=== PATIENT | male | born 1955 | race Caucasian/White ===

== ENCOUNTER → 2023-08-22 15:27 | Outpatient (REF) | payer MEDICARE, OTHER, SELFPAY ==
[2023-08-22 16:12] LABS: Urine Protein < 5 mg/dl
== END ==
LOC: OIDL 15:27
PROVIDERS: ATTENDING PHYSICIAN Internal Medicine Hematology & Oncology
DX: C34.12 Malignant neoplasm of upper lobe, left bronchus or lung (principal)
CPT/HCPCS: 82570; 84156

== ENCOUNTER → 2023-09-12 14:45 | Outpatient (REF) | payer MEDICARE, OTHER, SELFPAY ==
[2023-09-12 16:03] LABS: Urine Protein < 5 mg/dl
== END ==
LOC: OIDL 14:45
PROVIDERS: ATTENDING PHYSICIAN Internal Medicine Hematology & Oncology
DX: C34.12 Malignant neoplasm of upper lobe, left bronchus or lung (principal); D50.9 Iron deficiency anemia, unspecified; R53.82 Chronic fatigue, unspecified
CPT/HCPCS: 82570; 84156

== ENCOUNTER → 2023-10-10 13:30 | Outpatient (REF) | payer MEDICARE, OTHER, SELFPAY | LOC: HWRAD 13:30 | PROVIDERS: ATTENDING PHYSICIAN Nurse Practitioner Adult Health; FAMILY PHYSICIAN Family Medicine; REFERRING PHYSICIAN Internal Medicine Hematology & Oncology | DX: C34.12 Malignant neoplasm of upper lobe, left bronchus or lung (principal); D50.9 Iron deficiency anemia, unspecified; R53.82 Chronic fatigue, unspecified | CPT/HCPCS: 70470; 71260; 74177; Q9967 ==

== ENCOUNTER → 2023-11-21 15:34 | Outpatient (REF) | payer MEDICARE, OTHER, SELFPAY ==
[2023-11-21 15:31] LABS: Urine Protein < 5 mg/dl
== END ==
LOC: OIDL 15:34
PROVIDERS: ATTENDING PHYSICIAN Internal Medicine Hematology & Oncology
DX: C34.12 Malignant neoplasm of upper lobe, left bronchus or lung (principal)
CPT/HCPCS: 82570; 84156

== ENCOUNTER → 2023-12-12 15:52 | Outpatient (REF) | payer MEDICARE, OTHER, SELFPAY ==
[2023-12-12 17:11] LABS: Urine Protein < 5 mg/dl
== END ==
LOC: OIDL 15:52
PROVIDERS: ATTENDING PHYSICIAN Internal Medicine Hematology & Oncology
DX: C34.12 Malignant neoplasm of upper lobe, left bronchus or lung (principal)
CPT/HCPCS: 82570; 84156

== ENCOUNTER → 2023-12-19 16:12 | Outpatient (REF) | payer MEDICARE, OTHER, SELFPAY ==
[2023-12-19 14:51] LABS: % Basophils 0.4 % (0-2); % Eosinophils 1.7 % (0-6); % Lymphocytes 16.2 % (20.5-51.1); % Monocytes 12.2 % (1.7-9.3); % Neutrophils 69.5 % (42.2-75.2); Absolute Eosinophils 0.1 10^3/uL (0-0.7); Absolute Lymphocytes 0.9 10^3/uL (1.2-3.4); Absolute Monocytes 0.7 10^3/uL (0.1-0.6); Absolute Neutrophils 3.7 10^3/uL (1.4-6.5); Hematocrit 42.9 % (39.0-52.0); Hemoglobin 14.3 g/dL (13.0-18.0); Mean Corp Hgb Conc. 33.3 g/dL (33.0-37.0); Mean Corpuscular Hgb 34.3 pg (27.0-31.0); Mean Corpuscular Volume 102.9 fL (80.0-94.0); Mean Platelet Volume 9.3 fL (7.4-10.4); Platelet Count 82 10^3/uL (130-400); Red Blood Cell Count 4.17 10^6/uL (4.70-6.10); Red Cell Dist. Width 14.5 % (11.5-14.5); White Blood Cell Count 5.3 10^3/uL (4.8-10.8)
== END ==
LOC: OIDL 16:12
PROVIDERS: ATTENDING PHYSICIAN Internal Medicine Hematology & Oncology
DX: C34.12 Malignant neoplasm of upper lobe, left bronchus or lung (principal)
CPT/HCPCS: 85025

== ENCOUNTER 2023-12-26 23:17 | Inpatient (IN) | payer MEDICARE, OTHER, SELFPAY ==
[2023-12-26] VITALS (13 sets, daily range): BP systolic 100–148; BP diastolic 70–102; BMI 18.7
[2023-12-26 20:49] LABS: % Basophils 0.4 % (0-2); % Eosinophils 1.5 % (0-6); % Immature Granulocytes 0.2 % (0-0.5); % Lymphocytes 21.5 % (20.5-51.1); % Monocytes 12.4 % (1.7-9.3); Absolute Eosinophils 0.1 10^3/uL (0-0.7); Absolute Lymphocytes 1.1 10^3/uL (1.2-3.4); Absolute Monocytes 0.7 10^3/uL (0.1-0.6); Absolute Neutrophils 3.4 10^3/uL (1.4-6.5); Hematocrit 38.5 % (39.0-52.0); Hemoglobin 13.4 g/dL (13.0-18.0); Mean Corp Hgb Conc. 34.8 g/dL (33.0-37.0); Mean Corpuscular Volume 97.7 fL (80.0-94.0); Mean Platelet Volume 9.3 fL (7.4-10.4); Nucleated Red Blood Cells % 0 % (-); Platelet Count 96 10^3/uL (130-400); Red Blood Cell Count 3.94 10^6/uL (4.70-6.10); Red Cell Dist. Width 14.8 % (11.5-14.5); White Blood Cell Count 5.3 10^3/uL (4.8-10.8)
[2023-12-26] MEDS: CARDIZEM 5 MG IV (21:00)
[2023-12-26] MEDS: CARDIZEM 125 IV (21:01)
--- NOTE | 2023-12-26 21:03 | ED.GENMED ---
History of Present Illness
General
Chief Complaint: Breathing Problem
Source: patient
Exam Limitations: none
Time Seen by Provider: 12/26/23 20:32
History of Present Illness
History of Present Illness:
This is a 68 year old male that comes in with c/o his heart feeling tight. States that when he walks around it has been hard for him to breath. State that his chest feels tight. Patient states that he is not on cheko blood thinners. Denies any fever,
chills, abd pain, nause, vomiting, diarrhea, headache, dizziness, urinary burning.
Past History
Past History
ED Past Medical History: Arrthythmia (Atrial fib), Cancer (Lung and brain, Non small cell Lung CA with mets), HTN, Hypercholesterolemia and Other (PNA, Anemia, Legionella); Negative Asthma or NIDDM
ED Past Surgical History: None and Orthopedic (Back surgery for CA mets)
Social History
Tobacco: Former smoker
Alcohol: Daily (Beer 4-5)
Personal:
Living: with family
Review of Systems
Review of Systems
All Other Systems: ROS reviewed and negative except as documented in HPI and ROS
Constitutional: Reports no symptoms; Denies fever or chills
EENT: Reports no symptoms
Respiratory: Reports trouble breathing; Denies cough
Cardiac: Reports chest pain (Tighthness)
ABD/GI: Reports no symptoms; Denies abdominal pain, nausea, vomiting or diarrhea
: Reports no symptoms; Denies dysuria, frequency or urgency
Musculoskeletal: Reports no symptoms
Skin: Reports no symptoms
Neurological: Reports no symptoms; Denies dizzy or headache
Psychiatric: Reports no symptoms
Phy Exam
General Physical Exam
General Presentation: no apparent distress
General age: appears stated age
General Skin: warm and dry
General Habitus: elderly
General Mental: alert
General Hydration: appears well hydrated
ENT Exam
ENT Exam: TM's normal, pharynx normal and neck supple
Eye Exam
Eye Exam: EOMI
Cardiovascular Exam
Cardiovascular Exam: normal peripheral pulses and irregularly irregular
Pulmonary Exam
Pulmonary Exam: lungs clear, no respiratory distress, no rales, chest non tender, no crackles, no rhonchi, no wheezing and no cough
Gastrointestinal Exam
Gastrointestinal Exam: normal bowel sounds, non tender, soft, no organomegaly, no pulsatile mass and non distended
Musculoskeletal Exam
Musculoskeletal Exam: full ROM and edema (Lower leg +2 pitting to knee. Left hand and arm swelling)
Skin Exam
Skin Exam: warm/dry, no rash, no petechia and pallor
Psychiatric Exam
Psychiatric Exam: normal mood/affect
Scores
Heart Failure Risk
Heart Failure Risk Score: Not Applicable
Course
Orders/Labs/Results
Orders:
Orders
12/26/23 20:24
Electrocardiogram (*1) Urgent
Reason for Study: Shortness of Breath
EKG- Treatment ONCE
12/26/23 20:30
CR Chest - 2 Views Urgent
Comment:
Reason For Exam: shortness
12/26/23 20:42
Complete Blood Count/With Diff Urgent
Comprehensive Metabolic Panel Urgent
Troponin I Urgent
12/26/23 20:46
Diltiazem 125 mg/125 ml Nss [Cardizem] 125 mg in 125 ml IV NOW
Initial dose in mg/hr, then titrate:: 5
Titrate to keep:: Heart rate 80-100 bpm
Titrate by mg/hr:: 5 mg/hr
Frequency of titrations (minutes):: 15
Maximum dose in mg/hr:: 15
Diltiazem HCl [Cardizem] 5 mg IV NOW STA
12/26/23 21:11
CT Chest Pe Study Urgent
Comment: History of Lung CA, Now in atrial fib
Reason For Exam: SOB,
12/26/23 23:00
Flush (0.9% Sodium Chloride) [Flush (Nss)] See Dose Instructions IV PER PROTOCOL
12/26/23 23:06
Admit/Transfer Patient As Directed
Co-Sign Provider:
Level of Care: Inpatient admission
Assign to:: Telemetry
Physician / Group: fartun
Diagnosis: afib rvr
Reason for Telemetry: Arrhythmia
Date to Stop Telemetry: 12/29/23
Time to Stop Telemetry: 11:00
Reason for Hospitalization: afib rvr
Expected length of stay greater than two midnights?: Yes
ELOS- Estimated Length of Stay in days: 2
I certify the patient meets the requirements for IP care: Yes
12/26/23 23:07
Code Status As Directed
Resuscitation Status: Full Code
12/29/23 11:00
DC Protocol for Telemetry ONCE
Abnormal Lab Results
12/26/23
20:42
RBC 3.94 L 10^6/uL
(4.70-6.10)
Hct 38.5 L %
(39.0-52.0)
MCV 97.7 H fL
(80.0-94.0)
MCH 34.0 H pg
(27.0-31.0)
RDW 14.8 H %
(11.5-14.5)
Plt Count 96 L 10^3/uL
(130-400)
Absolute Lymphs (auto) 1.1 L 10^3/uL
(1.2-3.4)
Absolute Monos (auto) 0.7 H 10^3/uL
(0.1-0.6)
Monocytes % 12.4 H %
(1.7-9.3)
Creatinine 0.6 L mg/dL
(0.7-1.3)
Glucose 107 H mg/dl
(70-99)
Total Protein 6.1 L g/dl
(6.3-8.2)
Albumin 3.0 L g/dl
(3.5-5.0)
12/26/23 20:42
12/26/23 20:42
Anemia, thrombocytopenia, Glucose nonfasting. Albumin slightly low. Troponin <0.012
Vital Signs
Initial and Last Documented VS:
Initial Vital Signs
BP
136/102
12/26/23 20:21
Last Documented Vital Signs
Temp Pulse Resp BP Pulse Ox
98.9 F 82 20 102/70 96
12/26/23 20:25 12/26/23 23:45 12/26/23 23:45 12/26/23 23:30 12/26/23 23:45
MDM/Problems Addressed
Differential Diagnosis Includes:
Atrial fib,
MDM/Problems Addressed:
This is a 68 year old male that comes in with c/o SOB and chest tightness. States that when he walks around he is SOB. State that his chest tightness started yesterday and it just feels like someone is pushing back when he tried to take a deep
breath.
Will get Labs. Start on Cardizem and CT chest to r/o PE.
Chronic conditions affecting care:
History of Atrial fib
Acute Exacerbation and/or Progression of Chronic Illness:
History of atrial fib
*Radiology
Radiology exam reviewed: radiology read reviewed (Chest-NO acute cardiopulmonary process CT chest-NO evidence of pulmonary embolism. Small left and moderate right pleural effusions, new from prior. Upper abdominal ascites. )
*Pulse Oximetry
Patient hypoxic: no
*EKG
Interpreted by ED Provider?: Yes
Heart Rate: 150
Rate: tachycardiac
Rhythm: a-fib
[place]: normal axis
QRS Pattern: normal QRS
Ischemia: no ischemia
*Rail Car Repairer Interpretation
Rate: tachycardiac
Heart Rate: 147
Rhythm: a-fib
*Critical Care Note
Total Time (30-74mins, 75-104mins- exclusive of procedures): Not Applicable
ED Attending Note
-
Portions of this chart may have been created with voice recognition software.� Occasional wrong word or��sound alike� substitutions may have occurred due to the inherent limitations of voice recognition software.
Discharge Plan
Departure
Patient Disposition: Admit
Date of Disposition: 12/26/23
Time of Disposition: 22:43
Admit to: Telemetry
Presentation/result/management discussed w/ accepting MD/DO: Hospitalist
Patient with high blood pressure during this ER visit?: No
Condition: Good
Covid-19: Not Applicable
Discharge Problem:
Uncontrolled atrial fibrillation
Interventions
Interventions:
*Risk Screen - Suicide Last Done: 12/26/23 20:25
*General Assessment Last Done: 12/26/23 20:25
*Neglect/Abuse Screening Last Done: 12/26/23 20:25
ED- Cardiac Assessment Last Done: 12/26/23 20:34
ED- Pulmonary Assessment Last Done: 12/26/23 20:34
[2023-12-26 21:07] LABS: ALT (SGPT) 48 U/L (0-50); AST (SGOT) 56 U/L (17-59); Alkaline Phosphatase 97 U/L (38-126); Blood Urea Nitrogen 11 mg/dl (9-20); Calcium 8.9 mg/dl (8.4-10.2); Carbon Dioxide 29 mmol/L (22-30); Chloride 102 mmol/L (98-107); Estimated Creatinine Clearance 100 ml/min; Glucose 107 mg/dl (70-99); Potassium 3.9 mmol/L (3.5-5.1); Sodium 135 mmol/L (135-145); Total Bilirubin 1.3 mg/dl (0.2-1.3); Total Protein 6.1 g/dl (6.3-8.2); eGFR > 60.00
[2023-12-26 21:12] LABS: Troponin I < 0.012 ng/ml
--- NOTE | 2023-12-26 23:12 | HPS.HSE ---
Family Physician
-
Family Physician: Shashank Kulkarni
Chief Complaint
-
chest pressure, shortness of breath
History of Present Illness
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
post surgery, back wound infection with staph last year, atrial fibrillation not on anticoagulation, hypertension, hypercholesteremia, hypothyroidism, presenting with chest tightness, difficulty breathing since yesterday. He denies any fevers,
chills, abdominal pain, nausea vomiting, diarrhea, headache, dizziness or urinary symptoms.
No cough. No fevers or chills. No nausea vomiting or diarrhea. No urinary symptoms.
Patient has recently been complaining of some difficulty swallowing.
He is a former smoker and alcohol user. No longer uses.
Medical History
Past Medical History
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
post surgery, back wound infection with staph last year, atrial fibrillation not on antico)
Past Surgical History: Reports None
Social History
Tobacco: Former Smoker
Alcohol: Former
Drug: None
Family History
Family History: Not pertinent
Allergies / Home Medications
Allergies reflects when Allergies were last updated in [employer].
Home Medications with original date entered in [employer]
Allergy/Medication List:
Allergies
Allergy/AdvReac Type Severity Reaction Status Date / Time
cefazolin [From Anc] Allergy Rash Verified 12/26/23 20:21
vancomycin Allergy Rash Verified 12/26/23 20:21
Home Medications
atorvastatin 40 mg tablet 40 mg PO QPM 12/26/23
levetiracetam 500 mg tablet 500 mg PO BID 12/26/23
levothyroxine 50 mcg tablet 50 mcg PO DAILY 12/26/23
morphine 15 mg tablet,extended release 15 mg PO Q12H 12/26/23
polyethylene glycol 3350 17 gram oral powder packet 8.5 grams PO DAILY 12/26/23
therapeutic multivitamin 1 tab PO DAILY 12/26/23
trazodone 100 mg tablet 100 mg PO HS 12/26/23
Review of Systems
-
History Source: Patient
A 12 point ROS was completed and negative except as noted: Yes
Constitutional: Reports No Symptoms
EENT: Reports No Symptoms
Respiratory: Reports See HPI
Cardiac: Reports See HPI
Abdomen/GI: Reports No Symptoms
: Reports No Symptoms
Musculoskeletal: Reports No Symptoms
Skin: Reports No Symptoms
Neurological: Reports No Symptoms
Endocrine: Reports No Symptoms
Hematologic/Lymphatic: Reports No Symptoms
Psych: Reports No Symptoms
Physical Exam
Vital Signs
Vital Signs
Temp Pulse Resp BP Pulse Ox
98.9 F 131 16 122/86 96
12/26/23 20:25 12/26/23 21:15 12/26/23 21:15 12/26/23 21:15 12/26/23 21:15
Physical Exam
General: Well Developed, Well Nourished and No Apparent Distress
HEENT: NormoCephalic, Moist mucous membranes and Atraumatic
Respiratory: Clear
Cardiac: S1/S2 and Regular Rhythm; No Murmur or Rub
GI: Soft, Non Tender, Non Distended and Normal Bowel Sounds; No Organomegaly
Rectal: Deferred by Provider
Musculoskeletal: No Clubbing, No Cyanosis and No Edema
Skin: No Rash
Neuro: Nonfocal/grossly intact
Laboratory Results
-
12/26/23 20:42
12/26/23 20:42
Laboratory Results
Total Bilirubin 1.3 mg/dl (0.2-1.3) 06/25/24 20:42
AST 56 U/L (17-59) 12/26/23 20:42
ALT 48 U/L (0-50) 12/26/23 20:42
Alkaline Phosphatase 97 U/L (38-126) 12/26/23 20:42
Troponin I < 0.012 ng/ml 12/26/23 20:42
Data Reviewed
-
Lab Data: Labs Reviewed by me
Old Records: Reviewed
Impression/Plan
-
IMPRESSION:
PLAN:
# Atrial fibrillation with RVR
-Cardizem drip started
-Cardiology consulted
-Not on anticoagulation, not a good candidate due to thrombocytopenia, history of brain tumor
# Swallowing difficulty possibly related to prior radiation
-Check speech and swallow
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
-currently on immunotherapy with Cyramza
-On prophylactic Keppra due to history of brain metastases mets
Spine metastases status post surgery
-Continue morphine, trazodone
History of staph infection of back wound last year
Chronic thrombocytopenia
-Platelets stable
Essential hypertension
Hypercholesteremia
-Continue statin
Hypothyroidism
-Continue levothyroxine
Full code
DVT prophylaxis�SCDs
Regular diet
[2023-12-27] VITALS (7 sets, daily range): BP systolic 91–113; BP diastolic 68–86; BMI 18.2
--- NOTE | 2023-12-27 01:12 | PTCARENOTE ---
Pt rec'd as new admit awake,alert some confusion noted. spouse helped with adm hx. IV Cardizem gtt d/c'd shortly after arrival per house PROFESSOR OF GENETICS order. Afib 70-90. SQ port flushed,DDI. Pt missed PM medications, awaiting clearance from pharmacy to give
doses. bed alarm placed as spouse states pt is fall risk. multiple drsg on spine and buttocks. Consult for wound care placed.
[2023-12-27] MEDS: MS CONTIN (EXTENDED RELEASE) 15 MG PO ×3 (01:20→23:05)
[2023-12-27] MEDS: KEPPRA 500 MG PO ×3 (01:20→19:37)
[2023-12-27] MEDS: DESYREL 100 MG PO ×2 (01:20→23:05)
[2023-12-27 06:20] LABS: % Basophils 0.5 % (0-2); % Lymphocytes 23.5 % (20.5-51.1); % Monocytes 17.1 % (1.7-9.3); % Neutrophils 57.9 % (42.2-75.2); Absolute Lymphocytes 0.9 10^3/uL (1.2-3.4); Absolute Monocytes 0.7 10^3/uL (0.1-0.6); Absolute Neutrophils 2.3 10^3/uL (1.4-6.5); Hematocrit 33.8 % (39.0-52.0); Hemoglobin 11.6 g/dL (13.0-18.0); Mean Corp Hgb Conc. 34.3 g/dL (33.0-37.0); Mean Corpuscular Hgb 33.7 pg (27.0-31.0); Mean Corpuscular Volume 98.3 fL (80.0-94.0); Mean Platelet Volume 9.4 fL (7.4-10.4); Nucleated Red Blood Cells % 0 % (-); Platelet Count 61 10^3/uL (130-400); Red Blood Cell Count 3.44 10^6/uL (4.70-6.10); Red Cell Dist. Width 14.7 % (11.5-14.5); White Blood Cell Count 3.9 10^3/uL (4.8-10.8)
--- NOTE | 2023-12-27 06:37 | W.PN.HOSP.TC ---
Today's Communication/Plan
-
PT/OT
Speech evaluation
GOC discussion?
Assessment / Plan
Assessment / Plan
Physical Exam
General: chronically ill looking. No Apparent Distress
HEENT: Normocephalic, Moist mucous membranes and Atraumatic
Respiratory: limited, no wheezes.
Cardiac: S1/S2
GI: Soft, Non Tender, Non Distended
Rectal: No rectal bleeding
Musculoskeletal: No Clubbing, No Cyanosis and No Edema
Skin: No Rash
Neuro: Awake, forgetful
Psych: calm, confused.
# Hyponatremia
mild
# paroxysmal Atrial fibrillation with RVR
currently rate is controlled
Negative troponin
-Not on anticoagulation, not a good candidate due to thrombocytopenia, Brain metastatic.
# Cognitive impairment
per family, not new issue
# Swallowing difficulty possibly related to prior radiation
-Check speech and swallow
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
-currently on immunotherapy with Cyramza
-On prophylactic Keppra due to history of brain metastases mets
# cancer pain with opioid dependency
Spine metastases status post surgery
-Continue morphine, trazodone
# History of staph infection of back wound last year
#Chronic thrombocytopenia
Hx of pancytopenia due to chemotherapy
-Platelets stable
#Essential hypertension
Low BP without BP medications
Hypercholesteremia
-Continue statin
Hypothyroidism
-Continue levothyroxine
Total time spent to see the patient on the floor, examine the patient, review data and lab results, discuss treatment plan with patient, nursing staff around 55 minutes
Anticipated Discharge: 24 - 48 hours
Subjective/Interval History
-
Date of Service: December 27, 2023
He feels a little bit of sob/chest pain but later said no to chets pain
He seems sleepy
Objective Data
-
Labs:
Laboratory Results
12/26/23 12/27/23
20:42 06:05
WBC 5.3 3.9 L
Hgb 13.4 11.6 L
Hct 38.5 L 33.8 L
Plt Count 96 L 61 L D
Sodium 135 Pending
Potassium 3.9 Pending
Chloride 102 Pending
Carbon Dioxide 29 Pending
BUN 11 Pending
Creatinine 0.6 L Pending
Glucose 107 H Pending
Calcium 8.9 Pending
Total Bilirubin 1.3 Pending
AST 56 Pending
ALT 48 Pending
Alkaline Phosphatase 97 Pending
Vital Signs:
Vital Signs
Temp Pulse Resp BP Pulse Ox
98.1 F 69 17 105/68 96
12/27/23 05:52 12/27/23 06:00 12/27/23 05:52 12/27/23 05:51 12/27/23 05:52
I&O
12/25/23 12/26/23 12/27/23
06:59 06:59 06:59
Intake Total 50 / 50
Balance 50 / 50
[2023-12-27 07:02] LABS: ALT (SGPT) 56 U/L (0-50); AST (SGOT) 66 U/L (17-59); Albumin 2.4 g/dl (3.5-5.0); Alkaline Phosphatase 83 U/L (38-126); Blood Urea Nitrogen 10 mg/dl (9-20); Calcium 8.7 mg/dl (8.4-10.2); Carbon Dioxide 29 mmol/L (22-30); Chloride 103 mmol/L (98-107); Estimated Creatinine Clearance 97 ml/min; Glucose 93 mg/dl (70-99); Potassium 3.9 mmol/L (3.5-5.1); Sodium 134 mmol/L (135-145); Total Bilirubin 1.2 mg/dl (0.2-1.3); Total Protein 5.1 g/dl (6.3-8.2); eGFR > 60.00
--- NOTE | 2023-12-27 09:40 | PTOTSP ---
Speech Language Pathology
Pt seen for clinical bedside swallow evaluation. Known to FLASK CLEANER department at from VSE completed 01/02/09 with findings of some vallecular retention but no penetration/aspiration. Recommendations for regular solids/thin liquids, and FLASK CLEANER signed off.
This date, P.O. trials of puree and thin liquids via cup and straw provided. Consistent audible swallow with questionable reduced distention of pharyngoesophageal segment (PES). Consistent wet vocal quality with pt regurgitating P.O. into
tissues. Spoke with on phone prior to providing P.O. trials, and she reported these issues for at least a few months, but denied any PNA. Suspect aspiration. Further P.O. trials deferred.
Recommend:
(1) Consideration for NPO and VSE if in line with goals of care
(2) If P.O. is to be considered despite likely aspiration (but given lack of PNA), can consider IDDSI Level 4 (Puree) and Thin liquids
(3) FLASK CLEANER to continue to follow
--- NOTE | 2023-12-27 09:49 | CON.CAR ---
Addendum entered and electronically signed by Kenrick Acosta MD 12/27/23 11:57:
I saw and examined the patient.
The SAND CASTER's note was reviewed and I agree with the note.
Comment: 68 y/o male with hx PAF, lung cancer with mets to brain and spine, hypertension, and dyslipidemia who is here for evaluation of chest tightness and shortness of breath. He was seen to be in AFIB with RVR. Briefly on dilt drip, but rates
were slow overnight, so has been off. Now rates relatively well-controlled off meds, he appears chronically ill.
- Would differ anticoagulation to hem/onc doctor's
- Rate is reasonably well controlled, will continue to watch via telemetry, could consider digoxin given low BP
- TTE
Original Note:
Consultation
Consultation Request
Date/Time Consultation Requested: 12/27/233
Date/Time Consultation Performed: 12/27/2345
Requesting Provider: Dr. Higuera
Performing Provider: Leslie SHAVER for Dr. Acosta
Reason for Consultation: AFIB with RVR
Medical History
-
Chief Complaint: chest tightness and shortness of breath
History of Present Illness:
68 y/o male with hx PAF, lung cancer with mets to brain and spine, hypertension, and dyslipidemia who is here for evaluation of chest tightness and shortness of breath. He was seen to be in AFIB with RVR. Briefly on dilt drip, but rates were slow
overnight, so has been off. Now rates relatively well-controlled off meds. His symptoms have improved. He is in no distress at the time of my assessment.
Past Medical History
Past Medical History: Arrhythmias, Cancer, HTN and Hypercholesterolemia
Social History
Personal:
Living: With Family
Family History
Family History: Reviewed & Not Pertinent
Allergies / Home Medications
Allergy/AdvReac Type Severity Reaction Status Date / Time
cefazolin [From Ancef] Allergy Rash Verified 12/26/23 20:21
vancomycin Allergy Rash Verified 12/26/23 20:21
�Medication �Instructions �Recorded �Confirmed �Type
atorvastatin 40 mg tablet 40 mg PO QPM 12/26/23 12/27/23 History
levetiracetam 500 mg tablet 500 mg PO BID 12/26/23 12/27/23 History
levothyroxine 50 mcg tablet 50 mcg PO DAILY 12/26/23 12/27/23 History
morphine 15 mg tablet,extended 15 mg PO Q12H 12/26/23 12/26/23 History
release
polyethylene glycol 3350 17 gram 8.5 grams PO DAILY 12/26/23 12/27/23 History
oral powder packet
therapeutic multivitamin 1 tab PO DAILY 12/26/23 12/27/23 History
trazodone 100 mg tablet 100 mg PO HS 12/26/23 12/27/23 History
Review of Systems
-
History Source: Patient
All other systems: Negative unless noted
Respiratory: Trouble Breathing
Cardiac: Chest Pain (chest tightness)
Physical Exam
Vital Signs
Temp Pulse Resp BP Pulse Ox
97.3 F 53 16 105/68 97
12/27/23 09:23 12/27/23 09:15 12/27/23 09:23 12/27/23 05:51 12/27/23 09:39
Lab Results
12/27/23 06:05
12/27/23 06:05
Troponin I < 0.012 ng/ml 12/26/23 20:42
Physical Exam
General: Well Developed and No Apparent Distress
HEENT: Normocephalic and Anicteric
Respiratory: Other (coarse lung sounds right base, no respiratory distress)
Cardiac: Irregular Rhythm
Skin: Warm and Dry
Neuro: Awake and Alert
Psych: Calm
Impression / Plan
-
AFIB with RVR:
-rates improved, and actually with some bradycardia overnight- monitor off rate-control meds. Remain off diltiazem drip.
-not safe for AC with brain mets. Also thrombocytopenia noted. [id number] score at least 1 for age. He has hx of HTN but is off meds and BP runs low now. Risk AC > benefit.
Stage IV non-small cell metastatic lung cancer with metastases to brain, spine status post chemotherapy/radiation:
-follows with [facility]
History of HTN:
-not on meds, BP's on low end
Hypothyroidism:
-on levothyroxine
HLD:
-on statin
Of note, patient also with concern for aspiration per speech and nursing, who are discussing with primary team
Data Reviewed
-
EKG: Tracing Personally Visualized and interpreted (AFIB with RVR 150 BPM)
Radiology: Report Reviewed by me (CXR: No acute cardiopulmonary process.)
Medical Tests (Nuc Med, Echo etc): Report Reviewed by me (Echo 10/06/21: Normal biventricular size and systolic function without regional wall motion abnormality. Estimated LVEF 50-55%. Normal diastolic function. No significant valve disease.)
Labs: Labs Reviewed by me
[2023-12-27] MEDS: SYNTHROID 50 MCG PO (10:46)
[2023-12-27] MEDS: MIRALAX PO (10:47)
[2023-12-27] MEDS: THERAGRAN PO (10:47)
--- NOTE | 2023-12-27 11:25 | WOUNDNOTE ---
WON RN note: Patient admitted with uncontrolled atrial fibrillation.
See H&P for complete history. Lives with at home.
PMH: Ex smoker, Lung cancer with Mets to spine, back surgery. Brain tumor. October 2022 wound on lower back debrided/plastic surgery,+ staph. HTN, Afib, diarrhea, urgency and ambulatory dysfunction.
Wound Location and type/assessment: Patient admitted with: Healed wound on R lower back from previous plastic surgery 2022, pink scar no drainage. Upper spine with bulging hardware, skin intact, protective foam in use. Sacrum is intact,
buttocks/malena rectal skin with 2 tiny openings, red base, suspect stage 2 vs MASD. Patient had smear of loose stool upon assessment. Patient very restless while in bed, nurse at bedside assisted patient to chair using walker. Elbows and heels with
protective foams, blanchable red and intact.
Appetite: Fair, patient appears Cachectic.
Pressure redistribution devices in place: On Accumax, called [facility] for [facility] air bed, nurse aware to switch bed while patient sitting in chair. Air cushion in use on chair. Pillow under calves when in bed.
Plan: To buttock/malena rectal area applied skin prep and Exuderm thin to protect from stool. Silicone foam applied to bony intact Coccyx to protect. Continue foams on spine, lower back, elbows and heels to protect.
Will confirm orders with hospitalist and updated nurse. Updated care plan and will follow as needed.
Note to case management of equipment requested for discharge: VN if unable to do wound care.
--- NOTE | 2023-12-27 11:26 | WOUNDNOTE ---
UPPER BACK/SPINE
--- NOTE | 2023-12-27 15:31 | CM ---
CM following for DC planning needs.
Met w/ patient at bedside; spouse and best friend also present; to complete initial assessment.
Pt. resides w/ spouse in a private, 1 story home w/ ramp access to enter. Pt. is ambulatory with use of a RW or a wheelchair.
Pt. has been referred to [facility]iative [facility], with initial appointment arranged for 01/08.
If VN is needed, preference is for [facility]. VN.
Pt. has also been to rehab in the past, [facility] and [facility] with good experience.
CM will cont. to follow for DC planning needs.
[2023-12-27 16:10] LABS: TSH Reflex To Free T4 5.28 uIU/ml (0.47-4.68)
[2023-12-27 16:39] LABS: Free T4 1.59 ng/dl (0.78-2.19)
[2023-12-27] MEDS: LIPITOR 40 MG PO (17:47)
--- NOTE | 2023-12-27 18:19 | PTCARENOTE ---
Pt seen by speech therapy, tolerating pureed diet with thin liquids and able to swallow crushed meds given in apple sauce. Pt on aspiration precautions, OOB to chair for meals. Pt stated interest in having video swallow test, speech therapist and
aware.
Pt is forgetful and anxious at times, not always oriented to place but pleasant and cooperative. Pt at risk to fall, bed and chair alarms in place. Telemetry shows atrial fib at rates @35-40 when he sleeps and up to 170's briefly with activity. SBP
91-104.
--- NOTE | 2023-12-27 20:54 | PTCARENOTE ---
Assumed care at 1900. Patient alert to self, place and confused to month. Forgetful, chair and bed alarm audible. Port right chest accessed. A-FIB HR in the 70's, +2 bilateral lower leg pitting edema, weak pedal pulses with Doppler. Meds given in
applause. Reminded to use call graff as he was calling out for help.
[2023-12-28 03:17] VITALS: BP 111/58; BMI 17.8
[2023-12-28 06:41] VITALS: BP 94/71
[2023-12-28 06:43] VITALS: BP 115/75
[2023-12-28] MEDS: LOPRESSOR 2.5 MG IV (06:43)
--- NOTE | 2023-12-28 06:43 | W.PN.HOSP.TC ---
Addendum entered and electronically signed by Sheri Lovell MD 12/28/23 15:13:
Addendum
d/w CM, visiting nurse to come out on Monday. pt and are ok with it. I dont have objection to that.
will go over wound care orders with
End
Addendum entered and electronically signed by Sheri Lovell MD 12/28/23 14:46:
Addendum
CT head no changes
Saw the pt again at noon. he is sitting in chair, communicative appropriately with staff. No agitation and pleasant. He is following commands and seems at baseline with his . Possible hospital induced delirium and mostly at night
time,?.
I d/w Dr Lujan and at be side, will try low dose Ativan at home for anxiety. wanted a medicine to help with anxiety at home.
Consulted geriatric case manager.
Will do home care services.
Total discharge time spent to see the patient on the floor, examine the patient, review data and lab results, discuss discharge plan with patient, , geriatric case manager, Dr Lujan, nursing staff around 69 minutes
Addendum entered and electronically signed by Sheri Lovell MD 12/28/23 13:21:
Addendum
D/w Dr Lujan ( knows pt well). Pt's confusion is concerning. No localized neurological symptoms. Will do CT head to rule out major pathology.
Will await CT head before neurology consult
End
Original Note:
Today's Communication/Plan
-
Video swallow study
DC planning
c/w Cardiac medications.
Assessment / Plan
Assessment / Plan
Physical Exam
General: chronically ill looking. No Apparent Distress
HEENT: Normocephalic, Moist mucous membranes and Atraumatic
Respiratory: limited, no wheezes.
Cardiac: S1/S2
GI: Soft, Non Tender, Non Distended
Rectal: No rectal bleeding
Musculoskeletal: No Clubbing, No Cyanosis and No Edema
Skin: No Rash
Neuro: Awake, confused, followed commands.
Psych: calm, confused.
# Hyponatremia
mild
# paroxysmal Atrial fibrillation with RVR
currently rate is controlled
Negative troponin
-Not on anticoagulation, not a good candidate due to thrombocytopenia, Brain cancer metastasis.
# Cognitive impairment
Acute delirium in hospital setting.
per family, not new issue
# Swallowing difficulty possibly related to prior radiation
-d/w speech and swallow therapist, for video swallow
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
-currently on immunotherapy with Cyramza
-On prophylactic Keppra due to history of brain metastases mets
# cancer pain with opioid dependency
Spine metastases status post surgery
-Continue morphine, trazodone
# History of staph infection of back wound last year
#Chronic thrombocytopenia
Hx of pancytopenia due to chemotherapy
-Platelets stable
#Essential hypertension
Low BP without BP medications
Hypercholesteremia
-Continue statin
Hypothyroidism
-Continue levothyroxine
Total time spent to see the patient on the floor, examine the patient, review data and lab results, discuss treatment plan with patient, nursing staff around 55 minutes
Anticipated Discharge: Within 24 hours
Subjective/Interval History
-
Date of Service: December 28, 2023
Confused over night
Objective Data
-
Vital Signs:
Vital Signs
Temp Pulse Resp BP Pulse Ox
98.5 F 120 16 111/58 97
12/28/23 03:16 12/28/23 04:00 12/28/23 03:16 12/28/23 03:17 12/28/23 03:16
I&O
12/26/23 12/27/23 12/28/23
06:59 06:59 06:59
Intake Total 50 / 50 180 / 180
Balance 50 / 50 180 / 180
--- NOTE | 2023-12-28 06:51 | PTCARENOTE ---
Patient confused, thinks he is a barn down the butt. Rummaging through his belongings, hyerfixated on finding his shoes, wants to leave. HR in 180-190's, IV Lopressor given, Placed on a 1:1 for safety.
--- NOTE | 2023-12-28 07:30 | W.PN.CD ---
Today's Communication / Plan
-
- Continue supportive care.
Impression / Plan
-
AFIB with RVR:
-rates improved, and actually with some bradycardia overnight- monitor off rate-control meds. Remain off diltiazem drip.
-not safe for AC with brain mets. Also thrombocytopenia noted. [id number] score at least 1 for age. He has hx of HTN but is off meds and BP runs low now. Risk AC > benefit.
-Rates go up to 160s when ambulating but is well controlled in 90s at rest. Risk of severe bradycardia with addition of rate cotnrolling agents.
- Without AC, rhythm control is not advisable.
- Continue supportive conservative management.
Stage IV non-small cell metastatic lung cancer with metastases to brain, spine status post chemotherapy/radiation:
-follows with [facility]
- Confused and talking to the turned off off.
- Prognosis? / Hospice?
History of HTN:
-not on meds, BP's on low end
Hypothyroidism:
-on levothyroxine
HLD:
-on statin
Subjective:
Wants to go home. Confused and delirious.
Physical Exam
Vital Signs/Labs
Vital Signs
Temp Pulse Resp BP Pulse Ox
98.5 F 97 16 115/75 97
12/28/23 03:16 12/28/23 07:15 12/28/23 03:16 12/28/23 06:43 12/28/23 03:16
12/27/23 12/28/23 12/29/23
06:59 06:59 06:59
Actual Weight 57.4 kg 56.3 kg
12/27/23 06:05
12/27/23 06:05
Free T4 1.59 ng/dl (0.78-2.19) 12/27/23 06:05
LAB Results
12/26/23
20:42
Troponin I < 0.012
Physical Exam
Constitutional: No acute distress, Comfortable and Confusion
EENT: Anicteric and Moist mucous membranes
Cardiovascular: Systolic murmur absent and Rhythm/rate is irregular
Respiratory: Respiratory effort normal
GI: Soft and Non tender
Neuro/Psych: Alert and Other (confused.)
Data Reviewed
-
Date of Service: December 28, 2023
Medical Decision Making: Reviewed Test Results, Independent Historian Assessment, Test Interpretation and Review of Case with other Provider
EKG: Tracing Personally Visualized and interpreted
Echo: Report Reviewed by me
Labs: Labs Reviewed by me
Old Records: Reviewed
--- NOTE | 2023-12-28 09:45 | PTOTSP ---
Speech Language Pathology
VIDEOFLUOROSCOPIC SWALLOWING EXAMINATION (VSE) completed. Overall, pt with mild oral and mod-severe pharyngeal dysphagia. Penetration/aspiration noted during the swallow. This increased post solids given significant amount of pharyngeal residue.
Etiology of dysphagia is likely deconditioning as significant weakness noted. Pt remains at a high risk for aspiration, but has not developed PNA per report. Discussion with MD yesterday was to continue with P.O. diet knowing risks of
aspiration. Significantly increased pharyngeal residue with regular solids vs puree, placing pt at risk for choking. Also likely to aspirate all liquids at times, and safest to not aspirate thickener.
Recommend:
(1) Continue IDDSI Level 4 (Puree) and Thin Liquids with pt/ accepting risks of aspiration.
(2) Aspiration precautions: sit upright, slow rate, single cup sips only (no straw), frequent sips of liquids during meals, intermittent cough/reswallow, verbally cue to cough if wet voice noted
(3) Meds whole in puree
(4) DIRECTOR OF DEMENTIA OPERATIONS to continue to follow
[2023-12-28] MEDS: SYNTHROID 50 MCG PO (10:44)
[2023-12-28] MEDS: MS CONTIN (EXTENDED RELEASE) 15 MG PO (10:45)
[2023-12-28] MEDS: THERAGRAN 1 TABLET PO (10:45)
[2023-12-28] MEDS: KEPPRA 500 MG PO (10:46)
[2023-12-28] MEDS: MIRALAX 8.5 GRAMS PO (10:46)
[2023-12-28 11:31] VITALS: BP 107/82
--- NOTE | 2023-12-28 11:56 | PTCARENOTE ---
Pt confused this morning, tearful at times, disoriented to time and place. Pt had video swallow study, tolerating pureed diet without coughing. Pt states that he wants to go home.
--- NOTE | 2023-12-28 12:00 | CON.ONC ---
Impression
Impression
Stage IV non-small cell lung carcinoma
Increased confusion
History of brain metastases
VEGF therapy
Atrial fibrillation
Plan
Plan
Patient clearly off of his baseline
CT scan of the brain ZAHIDA
Has been unable to tolerate MRI in the past
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
Rate poorly control atrial fibrillation at 165 currently
Monitor CBC
Consider neurology evaluation
Patient History
History of Present Illness
History of Present Illness
68-year-old male past medical history of stage IV non-small cell metastatic lung cancer diagnosed in 06/22 with metastases to spine and brain status post chemotherapy/radiation currently on anti-VEGF therapy Cyramza last received 2 weeks ago 12/11.
he had a history of spinal metastases status post surgery, back wound infection with staph last year, atrial fibrillation not on anticoagulation, hypertension, hypercholesteremia, hypothyroidism, presenting with chest tightness, difficulty breathing
since yesterday. He denies any fevers, chills, abdominal pain, nausea vomiting, diarrhea, headache, dizziness or urinary symptoms. His is complaining that he has had increased confusion different from his baseline over the past week. He
reports some hallucinatory events.
Past-Medical/Surgical History
Past Medical History
Past Medical History: Stage IV non-small cell metastatic lung cancer with metastases to spine and brain status post chemotherapy/radiation currently on maintenance therapy with Cyramza last received 2 weeks ago, spinal metastases status post
surgery, back wound infection with staph last year, atrial fibrillation
Past Surgical History: None
Social History
Tobacco: Former Smoker
Alcohol: Former
Drug: None
Family History
Family History: Not pertinent
Patient Medication
�Medication �Instructions �Recorded �Confirmed �Last Taken �Type
atorvastatin 40 mg tablet 40 mg PO QPM 12/26/23 12/27/23 12/25/23 18:00 History
levetiracetam 500 mg tablet 500 mg PO BID 12/26/23 12/27/23 12/26/23 10:00 History
levothyroxine 50 mcg tablet 50 mcg PO DAILY 12/26/23 12/27/23 12/26/23 09:00 History
morphine 15 mg tablet,extended 15 mg PO Q12H 12/26/23 12/26/23 12/26/23 10:00 History
release
polyethylene glycol 3350 17 gram 8.5 grams PO DAILY 12/26/23 12/27/23 12/26/23 10:00 History
oral powder packet
therapeutic multivitamin 1 tab PO DAILY 12/26/23 12/27/23 12/26/23 12:00 History
trazodone 100 mg tablet 100 mg PO HS 12/26/23 12/27/23 12/25/23 21:00 History
Active Medications
Generic Name Dose Route Start Last Admin
Trade Name Freq PRN Reason Stop Dose Admin
Atorvastatin Calcium 40 mg 12/27/23 18:00 12/27/23 17:47
Atorvastatin (Lipitor) 40 Mg Tablet PO 01/24/24 17:59 40 mg
QPM THELMA Administration
Heparin Sodium (Porcine) 500 unit 12/27/23 01:56 12/28/23 06:44
Heparin Flush Pf (100 Unit/Ml) 5 Ml Syringe IV 01/24/24 01:55 500 unit
PRN PRN Administration
PORT FLUSH
Levetiracetam 500 mg 12/27/23 08:00 12/28/23 10:46
Levetiracetam 500 Mg Regular Release Tablet PO 01/24/24 07:59 500 mg
BID THELMA Administration
Levothyroxine Sodium 50 mcg 12/27/23 06:00 12/28/23 10:44
Levothyroxine 50 Mcg Tablet PO 01/24/24 05:59 50 mcg
DAILY @ 0600 THELMA Administration
Metoprolol Tartrate 2.5 mg 12/27/23 11:07 12/28/23 06:43
Metoprolol 5 Mg/5 Ml Vial IV 01/24/24 11:06 2.5 mg
Q6HPRN PRN Administration
sustained HR >110 BPM
Morphine Sulfate 15 mg 12/27/23 00:23 12/28/23 10:45
Morphine 15 Mg Extended Release Tablet PO 01/10/24 00:22 15 mg
Q12@1000,2200 THELMA Administration
Multivitamins Therapeutic 1 tablet 12/27/23 08:00 12/28/23 10:45
Multivitamin Tablet PO 01/24/24 07:59 1 tablet
DAILY THELMA Administration
Polyethylene Glycol 8.5 grams 12/27/23 08:00 12/28/23 10:46
Polyethylene Glycol Powder 17 Grams Packet PO 01/24/24 07:59 8.5 grams
DAILY THELMA Administration
Sodium Chloride 0 flush 12/26/23 23:00
Sodium Chloride 0.9% (Flush) Syringe IV 01/23/24 22:59
PER PROTOCOL THELMA
Trazodone HCl 100 mg 12/27/23 22:00 12/27/23 23:05
Trazodone 100 Mg Tablet PO 01/24/24 21:59 100 mg
HS THELMA Administration
Review of Systems
-
12 point review of systems fails to elicit additional complaints other than those reviewed in the HPI
Physical Exam
-
Physical Exam
General: Well Developed, Well Nourished and No Apparent Distress
HEENT: NormoCephalic, Moist mucous membranes and Atraumatic
Respiratory: Clear
Cardiac: S1/S2 and Regular Rhythm; No Murmur or Rub
GI: Soft, Non Tender, Non Distended and Normal Bowel Sounds; No Organomegaly
Rectal: Deferred by Provider
Musculoskeletal: No Clubbing, No Cyanosis and No Edema
Skin: No Rash
Neuro: Nonfocal/grossly intact
Labs
Lab Results
WBC 3.9 10^3/uL (4.8-10.8) L 06/26/24 06:05
RBC 3.44 10^6/uL (4.70-6.10) L 12/27/23 06:05
Hgb 11.6 g/dL (13.0-18.0) L 12/27/23 06:05
Hct 33.8 % (39.0-52.0) L 12/27/23 06:05
MCV 98.3 fL (80.0-94.0) H 12/27/23 06:05
MCH 33.7 pg (27.0-31.0) H 12/27/23 06:05
MCHC 34.3 g/dL (33.0-37.0) 12/27/23 06:05
RDW 14.7 % (11.5-14.5) H 12/27/23 06:05
Plt Count 61 10^3/uL (130-400) L D 12/27/23 06:05
MPV 9.4 fL (7.4-10.4) 12/27/23 06:05
Abs Immat Gran (auto) 0.0 10^3/uL (0-0.05) 12/27/23 06:05
Absolute Neuts (auto) 2.3 10^3/uL (1.4-6.5) 12/27/23 06:05
Absolute Lymphs (auto) 0.9 10^3/uL (1.2-3.4) L 12/27/23 06:05
Absolute Monos (auto) 0.7 10^3/uL (0.1-0.6) H 12/27/23 06:05
Absolute Eos (auto) 0.0 10^3/uL (0-0.7) 12/27/23 06:05
Absolute Basos (auto) 0.0 10^3/uL (0-0.2) 12/27/23 06:05
Immature Gran % 0.0 % (0-0.5) 12/27/23 06:05
Neutrophils % 57.9 % (42.2-75.2) 12/27/23 06:05
Lymphocytes % 23.5 % (20.5-51.1) 12/27/23 06:05
Monocytes % 17.1 % (1.7-9.3) H 12/27/23 06:05
Eosinophils % 1.0 % (0-6) 12/27/23 06:05
Basophils % 0.5 % (0-2) 12/27/23 06:05
Creatinine 0.5 mg/dL (0.7-1.3) L 12/27/23 06:05
Vital Signs
Vital Signs
Temp Pulse Resp BP Pulse Ox
98.0 F 118 20 115/75 97
12/28/23 11:31 12/28/23 11:31 12/28/23 11:31 12/28/23 06:43 12/28/23 11:31
--- NOTE | 2023-12-28 14:05 | CM ---
Addendum entered by MATTHEW Davis 12/28/23 16:16:
Spoke w/ Attending MD-plan for DC today w/ home VN.
Met w/ patient and spouse at bedside. Preference is for [facility] VN.
Referral made, accepted for start of care Saturday 12/30. Confirmed w/ patient/ spouse that they wish to wait until Monday for services. MD is OK with this.
Plan: [facility] VN
Original Note:
CM following for DC planning needs.
Consulted with RN today and reviewed notes, patient is somewhat disoriented at this time.
Testing per Oncology in progress.
At this time DC plans are uncertain.
I anticipate need for VN at minimum; spouse prefers [facility] VN.
Will follow.
--- NOTE | 2023-12-28 15:09 | VATNOTE ---
right subq port deaccessed per protocol. Brisk blood return noted prior to. fam at bedside.
--- NOTE | 2023-12-28 15:12 | PN.CDI ---
Addendum entered and electronically signed by Sheri Lovell MD 12/28/23 15:34:
Moderate protein calorie malnutrition
Original Note:
CDI
- -
CDI:
Physician Documentation Request
Admit Date: 12/26/23 23:17
Dear Doctor Nas,
Patient admitted with paroxysmal Atrial fibrillation with RVR.
12/26 Nutrition note, 'During visit RD able to visualize temporal wasting, orbital area sunken in, apparent ribs, protrusion of clavicle, calf muscle wasting. With < 75% estimated needs > 1 month and observed muscle and fat wasting pt meets AND/ASPEN
criteria for moderate protein calorie malnutrition of chronic illness.
Please provide in your note the diagnosis associated with the above findings and your assessment:
Moderate protein calorie malnutrition
Mild protein calorie malnutrition
Other (please specify)
Marydel Criteria ([facility] Hospitalist 2017)
2 or more criteria must be present for either
non severe or severe malnutrition
Note that the criteria differs related to the
presence of an acute or chronic illness
Chronic Illness
Energy Intake Non Severe: <75% for >1 month
Severe: <75% for >1 month
Weight Loss Non Severe: 5% over 1 month
7.5% over 3 months
10% over 6 months
20% over 1 year
Severe: >5% over 1 month
>7.5% over 3 months
>10% over 6 months
>20% over 1 year
Body Fat Non Severe: Mild Loss
Severe: Severe Loss
Muscle Mass Non Severe: Mild Loss
Severe: Severe Loss
Fluid Accumulation Non Severe: Mild Accumulation
Severe: Moderate to severe
accumulation
Reduced On Site Nurse Strength Non Severe: N/A
Severe: Measurably reduced
Use of terms such as suspected, likely, concern for, or probable (associated with a specific diagnosis that is being evaluated, monitored, or treated as if it exists) are acceptable and can be coded in the inpatient setting, when documented at the
time of discharge.
Thank you,
Shania MARTINI,RN,CCDS
CDI Specialist
Available via [place] text
Please use your independent medical judgment in providing your response.
--- NOTE | 2023-12-28 15:38 | PTCARENOTE ---
Pt seen by Nas Schuster and Yoni. Pt had CT scan head , no new changes noted. Pt much less confused with his nearby. Sub Q port deaccessed by IV team and telemetry was removed. discharge instructions reviewed with pt's regarding
medications, wound care, pureed diet and aspiration precautions, reporting cares and concerns and follow up appt's. Very good understanding verbalized. Pt will have VN follow up from [facility] as before. Pt escorted out via wheelchair and discharged
to home.
== END 2023-12-28 15:42 | disposition home health service (06) | DRG 641 ==
LOC: IVU 23:17
PROVIDERS: Clinical Nurse Specialist Family Health; ADMITTING PHYSICIAN Hospitalist; ATTENDING PHYSICIAN Internal Medicine; CONSULT PHYSICIAN Internal Medicine Hematology & Oncology; EMERGENCY PHYSICIAN Emergency Medicine; FAMILY PHYSICIAN Family Medicine; OTHER PHYSICIAN Internal Medicine Cardiovascular Disease
DX: E87.1 Hypo-osmolality and hyponatremia (principal); C79.51 Secondary malignant neoplasm of bone; C79.31 Secondary malignant neoplasm of brain; C34.90 Malignant neoplasm of unspecified part of unspecified bronchus or lung; F11.20 Opioid dependence, uncomplicated; F05 Delirium due to known physiological condition; E44.0 Moderate protein-calorie malnutrition; Z68.1 Body mass index [BMI] 19.9 or less, adult; G89.3 Neoplasm related pain (acute) (chronic); I48.0 Paroxysmal atrial fibrillation; E78.00 Pure hypercholesterolemia, unspecified; D69.6 Thrombocytopenia, unspecified; G31.84 Mild cognitive impairment of uncertain or unknown etiology; F41.9 Anxiety disorder, unspecified; R13.19 Other dysphagia; E03.9 Hypothyroidism, unspecified; I10 Essential (primary) hypertension; Z87.891 Personal history of nicotine dependence; Z92.21 Personal history of antineoplastic chemotherapy; Z92.3 Personal history of irradiation; Z79.890 Hormone replacement therapy; Z88.1 Allergy status to other antibiotic agents
CPT/HCPCS: 70450; 71046; 71275; 74230; 80053; 81003; 81015; 84439; 84443; 84484; 85025; 87070; 87086; 92610; 92611; 93005; 93306; 96374; 96375; 99285; Q9967

== ENCOUNTER 2024-01-31 17:10 | Emergency (ER) | payer MEDICARE, OTHER, SELFPAY ==
[2024-01-31 17:18] VITALS: BP 94/63
[2024-01-31 17:36] LABS: % Basophils 0.3 % (0-2); % Eosinophils 0.6 % (0-6); % Immature Granulocytes 0.3 % (0-0.5); % Lymphocytes 21.8 % (20.5-51.1); % Monocytes 13.1 % (1.7-9.3); % Neutrophils 63.9 % (42.2-75.2); Absolute Lymphocytes 0.8 10^3/uL (1.2-3.4); Absolute Monocytes 0.5 10^3/uL (0.1-0.6); Absolute Neutrophils 2.3 10^3/uL (1.4-6.5); Hematocrit 39.8 % (39.0-52.0); Hemoglobin 13.7 g/dL (13.0-18.0); Mean Corp Hgb Conc. 34.4 g/dL (33.0-37.0); Mean Corpuscular Hgb 33.2 pg (27.0-31.0); Mean Corpuscular Volume 96.4 fL (80.0-94.0); Nucleated Red Blood Cells % 0 % (-); Platelet Count 79 10^3/uL (130-400); Red Blood Cell Count 4.13 10^6/uL (4.70-6.10); Red Cell Dist. Width 16.2 % (11.5-14.5); White Blood Cell Count 3.6 10^3/uL (4.8-10.8)
[2024-01-31 17:43] LABS: PT 17.2 Sec (11.4-14.6)
[2024-01-31 17:57] LABS: ALT (SGPT) 42 U/L (0-50); AST (SGOT) 106 U/L (17-59); Albumin 2.9 g/dl (3.5-5.0); Alkaline Phosphatase 98 U/L (38-126); Blood Urea Nitrogen 17 mg/dl (9-20); Carbon Dioxide 27 mmol/L (22-30); Chloride 104 mmol/L (98-107); Glucose 101 mg/dl (70-99); Potassium 3.6 mmol/L (3.5-5.1); Sodium 136 mmol/L (135-145); Total Bilirubin 1.4 mg/dl (0.2-1.3); Total Protein 6.4 g/dl (6.3-8.2); eGFR > 60.00
--- NOTE | 2024-01-31 19:55 | EDRN ---
Pt arrives with into room, refusing to get changed into gown at this time.
[2024-01-31 20:21] VITALS: BP 102/74
--- NOTE | 2024-01-31 20:22 | ED.GENMED ---
History of Present Illness
General
Chief Complaint: Abnormal Lab Value
Source: patient and spouse
Exam Limitations: none
Time Seen by Provider: 01/31/24 19:54
History of Present Illness
History of Present Illness:
This is a 69 year old male that comes in with c/o abnormal labs. states that they got a phone call from [employer] that the patient Plt were low and to come to the ER. States that he has not had any bleeding. States that he was confused 2
nights ago and he thought they had broken into the school he went to. States that he has also had urinary frequency and is going into the [facility] every few min. States that he is occasionally SOB. Patient denies any fever,chills, chest pain, SOB at this
time, abd pain, nausea, vomiting, diarrhea, headache, dizziness, urinary burning.
Past History
Past History
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
ED Past Surgical History: None, Orthopedic (Back surgery for CA mets) and Other (Plastic surgery to back for wound care)
Social History
Tobacco: Former smoker
Alcohol: Former (Beer 4-5)
Personal:
Living: with family
Review of Systems
Review of Systems
All Other Systems: ROS reviewed and negative except as documented in HPI and ROS
Constitutional: Reports no symptoms; Denies fever or chills
EENT: Reports no symptoms
Respiratory: Reports trouble breathing (occasional); Denies cough
Cardiac: Reports no symptoms; Denies chest pain
ABD/GI: Reports no symptoms; Denies abdominal pain, nausea, vomiting or diarrhea
: Reports no symptoms
Musculoskeletal: Reports no symptoms
Skin: Reports no symptoms
Neurological: Reports no symptoms; Denies dizzy or headache
Psychiatric: Reports no symptoms
Phy Exam
General Physical Exam
General Presentation: no apparent distress
General age: appears stated age
General Skin: warm, dry and pale
General Habitus: elderly
General Mental: alert
General Hydration: dry mucous membranes
ENT Exam
ENT Exam: TM's normal, pharynx normal and neck supple
Eye Exam
Eye Exam: EOMI
Cardiovascular Exam
Cardiovascular Exam: irregularly irregular
Pulmonary Exam
Pulmonary Exam: lungs clear, no respiratory distress, no rales, chest non tender, no crackles, no rhonchi, no wheezing and no cough
Gastrointestinal Exam
Gastrointestinal Exam: non tender, soft, no organomegaly, no pulsatile mass, non distended and other (Hypoactive bowel sounds)
Musculoskeletal Exam
Musculoskeletal Exam: edema (+3 pitting edema of the legs)
Skin Exam
Skin Exam: warm/dry, no rash, no petechia and pallor
Psychiatric Exam
Psychiatric Exam: normal mood/affect
Course
Orders/Labs/Results
Orders:
Orders
01/31/24 17:25
Type+Screen Urgent
Complete Blood Count/With Diff Urgent
Comprehensive Metabolic Panel Urgent
PT/INR [Prothrombin Time] Urgent
PTT Urgent
01/31/24 20:20
CT Head W/o Iv Contrast Urgent
Comment:
Reason For Exam: Confusion. Low plt
01/31/24 20:27
0.9% Sodium Chloride 1000 ml [Nss] 1,000 ml IV BOLUS
01/31/24 22:00
Urinalysis Reflex To Culture Urgent
Date Specimen was Collected: 01/31/24
Time Specimen was Collected: 22:00
Urine Microscopic Reflex Cult Urgent
01/31/24 23:25
Dexamethasone Sod Phosphate [Decadron] 10 mg IV NOW STA
Abnormal Lab Results
01/31/24 01/31/24
17:25 22:00
WBC 3.6 L 10^3/uL
(4.8-10.8)
RBC 4.13 L 10^6/uL
(4.70-6.10)
MCV 96.4 H fL
(80.0-94.0)
MCH 33.2 H pg
(27.0-31.0)
RDW 16.2 H %
(11.5-14.5)
Plt Count 79 L 10^3/uL
(130-400)
MPV 11.0 H fL
(7.4-10.4)
Absolute Lymphs (auto) 0.8 L 10^3/uL
(1.2-3.4)
Monocytes % 13.1 H %
(1.7-9.3)
PT 17.2 H Sec
(11.4-14.6)
APTT 39.0 H Sec
(23.4-35.0)
Glucose 101 H mg/dl
(70-99)
Total Bilirubin 1.4 H mg/dl
(0.2-1.3)
AST 106 H U/L
(17-59)
Albumin 2.9 L g/dl
(3.5-5.0)
Ur Occult Blood Reflex 3+ A
(Negative)
Urine Bilirubin 1+ A
(Negative)
Urine Urobilinogen 3+ A
(Neg - 1+)
Urine RBC 3-6 A /HPF
(0-2)
Urine Bacteria (Reflex) Few A
(Negative)
Urine Albumin (Reflex) 1+ A
(Neg - Trace)
01/31/24 17:25
01/31/24 17:25
Pancytopenia, (Plt improved since morning labs according to ) PT 17.2 with INR 1.40, PTT 39.0, Glucose nonfasting. Total que very slightly elevated. AST elevation. Albumin low. Urine negative for infection.
Vital Signs
Initial and Last Documented VS:
Initial Vital Signs
Temp Pulse Resp BP Pulse Ox
98.4 F 67 16 94/63 97
01/31/24 17:18 01/31/24 17:18 01/31/24 17:18 01/31/24 17:18 01/31/24 17:18
Last Documented Vital Signs
Temp Pulse Resp BP Pulse Ox
98.4 F 70 16 99/70 96
01/31/24 17:18 01/31/24 23:30 02/01/24 00:00 01/31/24 21:02 01/31/24 23:30
MDM/Problems Addressed
Differential Diagnosis Includes:
Abnormal labs,
MDM/Problems Addressed:
This is a 69 year old male that comes in with c/o low Plt according to . States that she was called and told to bring him to the ER. States that he has also been confused at times and 2 nights ago he was up as he thought they broke into his
school. States that he has also been going to the [facility] frequently.
Will check labs. CT head and get urine. Will also give IV fluids.
Spoke with Dr. Landry. Reviewed CT of head. Will start IV steroids. Attempted to have patient admitted by wants to take him home. States that he will be better there. Will start on Decadron 4mg po Q8 hours and Dr. Landry will have the office get
in touch with patient as it may be time to place patient on [facility] care. Will discharge home.
Chronic conditions affecting care: Cancer
Acute Exacerbation and/or Progression of Chronic Illness: Cancer
*Radiology
Radiology exam reviewed: radiology read reviewed (CT head-Findings suggesting interval increase in etastatic lesion and associated edema in the right temporal and occipital region, with edema also extending into the region of the posterior right
lentiform nucleus, posterior limb of the right internal capsule, right thalamus and right midbrain.) and other (CT head cont- No evidence for acute intracranial hemorrhage. )
*Pulse Oximetry
Patient hypoxic: no
*EKG
Interpreted by ED Provider?: NA
Rate: EKG- N/A
*Parliamentary Archivist Interpretation
Rate: Parliamentary Archivist- N/A
*Critical Care Note
Total Time (30-74mins, 75-104mins- exclusive of procedures): Not Applicable
ED Attending Note
-
Portions of this chart may have been created with voice recognition software.� Occasional wrong word or��sound alike� substitutions may have occurred due to the inherent limitations of voice recognition software.
Discharge Plan
Departure
Patient Disposition: Home (Routine Discharge)
Date of Disposition: 02/01/24
Time of Disposition: 00:18
Patient with high blood pressure during this ER visit?: No
Condition: Fair
Covid-19: Not Applicable
Discharge Problem:
Metastatic cancer to brain
Prescriptions:
New
dexamethasone 4 mg tablet
4 mg PO Q8H Qty: 45 0RF
No Action
atorvastatin 40 mg tablet
40 mg PO QPM
levetiracetam 500 mg tablet
500 mg PO BID
therapeutic multivitamin Tablet
1 tab PO DAILY
trazodone 100 mg tablet
100 mg PO HS
levothyroxine 50 mcg tablet
50 mcg PO DAILY
polyethylene glycol 3350 17 GRAMS powder in packet
8.5 grams PO DAILY
morphine 15 MG tablet extended release
15 mg PO Q12H
lorazepam [Ativan] 0.5 mg tablet
0.25 mg PO BID PRN (Reason: anxiety) Qty: 10 0RF
Referrals:
Shashank Kulkarni MD [Family Provider] -
Activity Restrictions/Additional Instructions:
As discussed, your CT is negative for any bleeding but it does show that there is increased in the metastatic disease. This is causing swelling and the confusion. You have been started on a steroid and given your first dose here. A prescription has
been sent to your pharmacy. Please take this as directed. Please call the Oncologist office tomorrow for further management. IF YOU HAVE ANY OTHER CONCERNS PLEASE RETURN TO THE EMERGNCY ROOM
Interventions
Interventions:
*Risk Screen - Suicide Last Done: 01/31/24 20:30
*General Assessment Last Done: 01/31/24 20:30
*Neglect/Abuse Screening Last Done: 01/31/24 20:30
ED- Fall Risk Assessment Last Done: 01/31/24 20:30
*ED COVID-19 Vaccine History Last Done: 01/31/24 20:30
Discharge Date and Time
Print Language: WALLISIAN
[2024-01-31] MEDS: NSS 1000 IV (21:01)
[2024-01-31 21:02] VITALS: BP 99/70
[2024-01-31 22:06] LABS: Urine Albumin 1+ (Neg - Trace); Urine Bilirubin 1+ (Negative); Urine Character Clear (Clear); Urine Color Yellow; Urine Glucose Negative (Negative); Urine Ketone Negative (Negative); Urine Leukocyte Negative (Negative); Urine Nitrite Negative (Negative); Urine Occult Blood 3+ (Negative); Urine Urobilinogen 3+ (Neg - 1+)
[2024-01-31 22:16] LABS: Urine Mucus Many; Urine Squamous Cell 0-2 /LPF (Few)
[2024-01-31 22:18] LABS: Urine Bacteria Few (Negative); Urine White Cell 0-2 /HPF (0-5)
[2024-01-31] MEDS: DECADRON 10 MG IV (23:33)
== END 2024-02-01 00:31 | disposition home or self-care (01) ==
LOC: EMR 17:10
PROVIDERS: Clinical Nurse Specialist Family Health; Emergency Medicine; EMERGENCY PHYSICIAN Emergency Medicine; FAMILY PHYSICIAN Family Medicine
DX: C79.31 Secondary malignant neoplasm of brain (principal); I48.91 Unspecified atrial fibrillation; I10 Essential (primary) hypertension; E78.00 Pure hypercholesterolemia, unspecified; E03.9 Hypothyroidism, unspecified; D61.818 Other pancytopenia; Z85.118 Personal history of other malignant neoplasm of bronchus and lung; Z87.442 Personal history of urinary calculi; Z87.891 Personal history of nicotine dependence
CPT/HCPCS: 99284; 96374; 96361; 70450; 80053; 81003; 81015; 85025; 85610; 85730; 86850; 86900; 86901

== ENCOUNTER 2024-02-09 22:07 | Inpatient (IN) | payer MEDICARE, OTHER, SELFPAY ==
[2024-02-09] VITALS (8 sets, daily range): BP systolic 97–115; BP diastolic 74–80
[2024-02-09 18:21] LABS: ALT (SGPT) 52 U/L (0-50); AST (SGOT) 66 U/L (17-59); Albumin 2.7 g/dl (3.5-5.0); Alkaline Phosphatase 79 U/L (38-126); Blood Urea Nitrogen 29 mg/dl (9-20); Carbon Dioxide 29 mmol/L (22-30); Chloride 108 mmol/L (98-107); Glucose 118 mg/dl (70-99); Potassium 3.9 mmol/L (3.5-5.1); Sodium 139 mmol/L (135-145); Total Bilirubin 1.7 mg/dl (0.2-1.3); Total Protein 6.2 g/dl (6.3-8.2); eGFR > 60.00
[2024-02-09 18:27] LABS: % Basophils 0.1 % (0-2); % Immature Granulocytes 0.4 % (0-0.5); % Lymphocytes 2.8 % (20.5-51.1); % Monocytes 6.2 % (1.7-9.3); % Neutrophils 90.7 % (42.2-75.2); Absolute Lymphocytes 0.2 10^3/uL (1.2-3.4); Absolute Monocytes 0.5 10^3/uL (0.1-0.6); Absolute Neutrophils 7.3 10^3/uL (1.4-6.5); Hematocrit 41.1 % (39.0-52.0); Hemoglobin 13.7 g/dL (13.0-18.0); Mean Corpuscular Hgb 34.1 pg (27.0-31.0); Mean Corpuscular Volume 100.5 fL (80.0-94.0); Mean Platelet Volume 9.8 fL (7.4-10.4); Nucleated Red Blood Cells % 0 % (-); Platelet Count 69 10^3/uL (130-400); Red Blood Cell Count 4.16 10^6/uL (4.70-6.10); Red Cell Dist. Width 17.1 % (11.5-14.5); White Blood Cell Count 8.1 10^3/uL (4.8-10.8)
[2024-02-09] MEDS: NSS 1000 IV (18:33)
--- NOTE | 2024-02-09 19:27 | ED.GENMED ---
History of Present Illness
General
Chief Complaint: Heart Rate Problem
Source: spouse
Exam Limitations: none
Time Seen by Provider: 02/09/24 17:43
Nursing documentation reviewed up to this point in time: agreed with
History of Present Illness
History of Present Illness:
Patient to ED for increased confusion, failure to thrive. History of Lung CA with mets to brain, spine. He was seen in ED 2 weeks ago for similar presentation and admission was recommended. did not agree to admission and took him home.
Since then he continues to fail. She states they have an upcoming appointment with oncology to talk about new treatment options for him. States she was advised to come to ED today after calling oncology due to his declining status. No
fever/chills. states he takes applesauce wtih his meds, has toast in the AM and nothing more. On arrival to ED he was in a rapid A-fib. confirms that this is his baseline, he is not a candidate for blood thinners or cardioversion. He
has since returned to NSS after IVF.
Past History
Past History
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
ED Past Surgical History: None, Orthopedic (Back surgery for CA mets) and Other (Plastic surgery to back for wound care)
Social History
Tobacco: Former smoker
Alcohol: Former (Beer 4-5)
Personal:
Living: with family
Review of Systems
Review of Systems
Allergies reviewed?: Yes
All Other Systems: ROS reviewed and negative except as documented in HPI and ROS
Constitutional: Reports fatigue
EENT: Reports no symptoms
Respiratory: Reports cough and trouble breathing
Cardiac: Reports other (Afib on arrival to ED at rate of 130's)
ABD/GI: Reports anorexia
: Reports no symptoms
Musculoskeletal: Reports no symptoms
Skin: Reports no symptoms
Neurological: Reports weakness and other (confusion)
Psychiatric: Reports no symptoms
Phy Exam
General Physical Exam
General Presentation: moderate distress
General age: appears older than age
General Skin: warm and dry
General Habitus: cachetic and failure to thrive
General Mental: confused
Cardiovascular Exam
Cardiovascular Exam: irregularly irregular
Pulmonary Exam
Pulmonary Exam: chest non tender
Oxygen Status: oxygen 3 liters via NC
Cough: coarse cough
Breath Sounds: Rhonchi: left lower and right lower
Gastrointestinal Exam
Gastrointestinal Exam: normal bowel sounds and non tender
Musculoskeletal Exam
Musculoskeletal Exam: full ROM and neuro vasc intact
Skin Exam
Skin Exam: warm/dry, no rash and pallor
Psychiatric Exam
Psychiatric Exam: hallucination
Course
Orders/Labs/Results
Orders:
Orders
02/09/24 17:26
Electrocardiogram (*1) Urgent
Reason for Study: Tachycardia
EKG- Treatment ONCE
02/09/24 17:58
Complete Blood Count/With Diff Urgent
Comprehensive Metabolic Panel Urgent
02/09/24 18:03
Urinalysis Reflex To Culture Urgent
02/09/24 18:04
0.9% Sodium Chloride 1000 ml [Nss] 1,000 ml IV BOLUS
CR Chest - 2 Views Urgent
Comment:
Reason For Exam: SOB, cough
02/09/24 20:04
CT Head W/o Iv Contrast Urgent
Comment:
Reason For Exam: Brain Mets, Confusion
02/09/24 21:06
LevoFLOXacin 750 MG/150 ML [Levaquin] 750 mg in 150 ml IV NOW
02/09/24 21:52
Admit/Transfer Patient As Directed
Co-Sign Provider:
Level of Care: Inpatient admission
Assign to:: Telemetry
Physician / Group: Brannon
Diagnosis: Pneumonia, A-Flutter, Lung Cancer
Reason for Telemetry: Arrhythmia
Date to Stop Telemetry: 02/12/24
Time to Stop Telemetry: 11:00
Reason for Hospitalization: Pneumonia, A-Flutter, Lung Cancer
Expected length of stay greater than two midnights?: Yes
ELOS- Estimated Length of Stay in days: 3
I certify the patient meets the requirements for IP care: Yes
PRN Pain Medication Management As Directed
May give lesser potent ordered pain med per pt: Yes
preference::
Protocol:: Medication orders for pain may be administered in a
manner that supports deferring to patient preference
when the pt is:
- Requesting an ordered lesser potent pain medication.
Least to most potent pain medications are defined
as: acetaminophen < NSAID < tramadol < opioids
(morphine, oxycodone, hydromorphone).
- Requesting a lesser dose of the same medication IF
ORDERED.
- Requesting a less intrusive route of administration
if both routes are prescribed by the provider (PO <
IV).
02/09/24 21:54
Code Status As Directed
Resuscitation Status: Full Code
02/09/24 21:57
Trazodone [Desyrel] 50 mg PO NOW STA
02/09/24 22:16
COVID-19 Antigen Urgent
Source: Nasal Swab
02/12/24 11:00
DC Protocol for Telemetry ONCE
Abnormal Lab Results
02/09/24
17:58
RBC 4.16 L 10^6/uL
(4.70-6.10)
MCV 100.5 H fL
(80.0-94.0)
MCH 34.1 H pg
(27.0-31.0)
RDW 17.1 H %
(11.5-14.5)
Plt Count 69 L 10^3/uL
(130-400)
Absolute Neuts (auto) 7.3 H 10^3/uL
(1.4-6.5)
Absolute Lymphs (auto) 0.2 L 10^3/uL
(1.2-3.4)
Neutrophils % 90.7 H %
(42.2-75.2)
Lymphocytes % 2.8 L %
(20.5-51.1)
Chloride 108 H mmol/L
(98-107)
BUN 29 H mg/dl
(9-20)
Creatinine 0.5 L mg/dL
(0.7-1.3)
Glucose 118 H mg/dl
(70-99)
Total Bilirubin 1.7 H mg/dl
(0.2-1.3)
AST 66 H U/L
(17-59)
ALT 52 H U/L
(0-50)
Total Protein 6.2 L g/dl
(6.3-8.2)
Albumin 2.7 L g/dl
(3.5-5.0)
02/09/24 17:58
02/09/24 17:58
Vital Signs
Initial and Last Documented VS:
Initial Vital Signs
Pulse Pulse Ox
156 88
02/09/24 17:25 02/09/24 17:25
Last Documented Vital Signs
Pulse Resp BP Pulse Ox
65 14 115/74 96
02/09/24 21:00 02/09/24 21:00 02/09/24 21:00 02/09/24 21:00
*Radiology
Radiology exam reviewed: radiology read reviewed
*Pulse Oximetry
Patient hypoxic: yes
*Critical Care Note
Total Time (30-74mins, 75-104mins- exclusive of procedures): Not Applicable
Update Note
Update Note:
Patient to ED accompainied by for reports of increasing confusion, not eating or drinking, worsening cough. Hx of Lung CA with mets to brain and spine. reports that they are meeting with oncology soon to discuss further treatment options
for him. No plans for hospice at this time. He is extremely weak, confused, hallucinating. Rapid Afib on arrival to ED. Given 1LNSS, and converted back to NSS at rate of 65. BP stable. PUlse ox 85% RA. ON 3L NC now and pulse ox holding at
95%. (No home O2). requesting to continue with cancer care. Will admit to hospitalists service
Discussed CXR with radiologist. Left perihilar pneumonia and small left pleural effusion. Levaquin 750mg IV ordere. (cephalosporin allergic).
ED Attending Note
-
Portions of this chart may have been created with voice recognition software.� Occasional wrong word or��sound alike� substitutions may have occurred due to the inherent limitations of voice recognition software.
Discharge Plan
Departure
Patient Disposition: Admit
Date of Disposition: 02/09/24
Time of Disposition: 19:35
Presentation/result/management discussed w/ accepting MD/DO: Hospitalist
Condition: Fair
Covid-19: Not Applicable
Discharge Problem:
Failure to thrive
Interventions
Interventions:
*Risk Screen - Suicide Last Done: 02/09/24 18:54
*General Assessment Last Done: 02/09/24 18:59
*Neglect/Abuse Screening Last Done: 02/09/24 18:54
ED- Fall Risk Assessment Last Done: 02/09/24 18:58
ED- Cardiac Assessment Last Done: 02/09/24 19:58
ED- Pulmonary Assessment Last Done: 02/09/24 17:35
[2024-02-09] MEDS: LEVAQUIN 150 IV (21:20)
--- NOTE | 2024-02-09 21:58 | HPS.HSE ---
Addendum entered and electronically signed by Fabián South DO 02/09/24 22:50:
COVID testing was positive.
Patient is already on steroids (for cerebral edema) and does not have significant hypoxemia, etc.
Would hold on further systemic abx for now.
Follow proper precautions.
Follow for clinical improvement.
Original Note:
Family Physician
-
Family Physician: NOT KNOW UNKNOWN - PT DOES
Chief Complaint
-
Confusion, Cough
History of Present Illness
Patient is a 69y M with PMH significant for Stage IV NSCLC who presents to ED complaining of weakness, confusion, cough, etc for the past several days. History obtained from patient and the family at the bedside. Patient has been experiencing
increased somnolence, fatigue, poor appetite, confusion and general malaise for several weeks. He was seen in the ED 01/[address] done at that time showed new / increased metastatic lesion in the R temporal area with surrounding
edema. He was started on steroids at that time and discharged to home with plans for outpatient Oncology follow-up.
Patient has continued to feel poorly since that time. Family also notes dry, hacking cough for about 1 week. No fevers / chills. No abdominal pain, N/V/D or urinary complaints.
Medical History
Past Medical History
Past Medical History: Reports Other
Additional Past Medical History:
Stage IV NSCLC s/p Back Surgery, Chemo, XRT, Immunotherapy
Surgical Wound Infection (Staph) on long-term abx
Paroxysmal Atrial Fibrillation / Flutter
Past Surgical History: Reports Other
Additional Past Surgical History:
Extensive Back Surgery / Reconstruction secondary to metastatic disease
Social History
Tobacco: Former Smoker
Alcohol: Former
Drug: None
Personal:
Living: With Family
Family History
Family History: Not pertinent
Allergies / Home Medications
Allergies reflects when Allergies were last updated in [employer].
Home Medications with original date entered in [employer]
Allergy/Medication List:
Allergies
Allergy/AdvReac Type Severity Reaction Status Date / Time
cefazolin [From [facility]] Allergy Rash Verified 01/31/24 17:17
vancomycin Allergy Rash Verified 01/31/24 17:17
Home Medications
atorvastatin 40 mg tablet 40 mg PO QPM 12/26/23
levetiracetam 500 mg tablet 500 mg PO BID 12/26/23
levothyroxine 50 mcg tablet 50 mcg PO DAILY 12/26/23
morphine 15 mg tablet,extended release 15 mg PO Q12H 12/26/23
polyethylene glycol 3350 17 gram oral powder packet 8.5 grams PO DAILY 12/26/23
trazodone 100 mg tablet 50 mg PO HS 12/26/23
dexamethasone 4 mg tablet 4 mg PO Q8H anti-Inflammation #45 tabs 02/01/24
lorazepam 0.5 mg tablet (Ativan) 0.25 mg PO BIDPRN PRN anxiety 02/09/24
pantoprazole 40 mg tablet,delayed release 40 mg PO HS 02/09/24
Review of Systems
-
History Source: Patient
A 12 point ROS was completed and negative except as noted: Yes
Constitutional: Reports Fatigue; Denies Fever or Chills
EENT: Denies Sore Throat
Respiratory: Reports Cough; Denies Hemoptysis or Trouble Breathing
Cardiac: Denies Chest Pain or Palpitations
Abdomen/GI: Reports Anorexia; Denies Abdominal Pain, Nausea, Vomiting or Diarrhea
: Denies Dysuria, Frequency or Flank Pain
Musculoskeletal: Reports Edema; Denies Joint Pain
Neurological: Denies Dizzy or Headache
Psych: Reports Other (Confusion)
Physical Exam
Vital Signs
Vital Signs
Pulse Resp BP Pulse Ox
65 14 115/74 96
02/09/24 21:00 02/09/24 21:00 02/09/24 21:00 02/09/24 21:00
Physical Exam
General: Other (Cachectic 69y M in no acute distress. Appears older than stated age.)
HEENT: Other (Dry MM. Bitemporal wasting.)
Respiratory: Other (Coarse breath sounds L mid lung.)
Cardiac: S1/S2, Regular Rhythm and Murmur (II/ AGUSTIN)
GI: Soft, Non Tender, Non Distended and Normal Bowel Sounds
Musculoskeletal: No Clubbing, No Cyanosis and Other (1+ pitting edema bilateral ankles.)
Neuro: AO x 3
Laboratory Results
-
02/09/24 17:58
02/09/24 17:58
Laboratory Results
Total Bilirubin 1.7 mg/dl (0.2-1.3) H 02/09/24 17:58
AST 66 U/L (17-59) H 02/09/24 17:58
ALT 52 U/L (0-50) H 02/09/24 17:58
Alkaline Phosphatase 79 U/L (38-126) 02/09/24 17:58
Impression/Plan
-
A/P: Patient is a 69y M with PMH significant for metastatic lung cancer who presents to ED complaining of recent cough, fatigue, confusion, etc.
Pneumonia
- Admit for further evaluation and treatment.
- CXR shows L sided opacity and small L effusion.
- ? infectious process v recurrent malignancy v other.
- Afebrile, no leukocytosis (but pos L shift).
- Cover with IV abx for now.
- Check COVID status.
- Follow for clinical improvement.
- Would likely benefit from additional imaging for restaging of malignancy in any event (see below).
Stage IV NSCLC
- states not currently on any active therapy.
- Has been reportedly stable.
- Now new edema noted associated with chronic-appearing R temporal lesion.
- Edema much improved since initiation of steroids - continue / begin to taper.
- Will ask Oncology to evaluate / discuss treatment options.
- Continue Keppra for seizure prophylaxis.
Acute TME on Chronic Encephalopathy
- Some degree of chronic confusion / dementia seems likely here.
- Patient with described hospital associated delirium during prior admission.
- Acute worsening likely secondary to cerebral edema +/- infection +/- steroids.
- Follow for any changes with treatment of the above.
- Continue HS trazodone and PRN lorazepam as needed for acute anxiety.
Thrombocytopenia
- Chronic / appears stable.
- No evidence of active bleeding.
- Follow for changes in cell counts, etc.
Hypothyroidism
- Continue current T4 supplementation.
- Update TFTs.
DVT Prophylaxis: SCDs
Code Status: Full
[2024-02-09] MEDS: DESYREL 50 MG PO (22:21)
[2024-02-09 22:38] LABS: COVID-19 Antigen Positive (Negative)
[2024-02-09] MEDS: MS CONTIN (EXTENDED RELEASE) 15 MG PO (23:46)
[2024-02-09] MEDS: PROTONIX 40 MG PO (23:46)
[2024-02-09] MEDS: ATIVAN 0.25 MG PO (23:47)
--- NOTE | 2024-02-09 23:50 | PTCARENOTE ---
Received patient from ED. Patient ambulated to the bedside with an assist of one. Patient assessed. VSS. Patient attempting to get out of bed. Patient educated to ring for all transfers. Spouse staying with patient overnight. Bed alarm and
medsitter in place. Patient oriented to the unit.
[2024-02-10] VITALS (11 sets, daily range): BP systolic 112–149; BP diastolic 58–88; PULSE 61–96; O2SAT 96; BMI 18.3
[2024-02-10 00:14] LABS: TSH Reflex To Free T4 1.81 uIU/ml (0.47-4.68)
[2024-02-10 04:16] LABS: Urine Albumin Trace (Neg - Trace); Urine Bilirubin Negative (Negative); Urine Character Clear (Clear); Urine Color Yellow; Urine Glucose Negative (Negative); Urine Ketone Negative (Negative); Urine Leukocyte Negative (Negative); Urine Nitrite Negative (Negative); Urine Occult Blood Negative (Negative); Urine Urobilinogen 1+ (Neg - 1+)
[2024-02-10] MEDS: SYNTHROID 50 MCG PO (05:46)
[2024-02-10 06:01] LABS: Blood Urea Nitrogen 30 mg/dl (9-20); Calcium 8.7 mg/dl (8.4-10.2); Carbon Dioxide 31 mmol/L (22-30); Chloride 109 mmol/L (98-107); Estimated Creatinine Clearance 93 ml/min; Glucose 97 mg/dl (70-99); Magnesium 2.1 mg/dl (1.6-2.3); Sodium 139 mmol/L (135-145); eGFR > 60.00
[2024-02-10 06:02] LABS: Hematocrit 34.6 % (39.0-52.0); Hemoglobin 11.6 g/dL (13.0-18.0); Mean Corp Hgb Conc. 33.5 g/dL (33.0-37.0); Mean Corpuscular Volume 98.6 fL (80.0-94.0); Mean Platelet Volume 11.7 fL (7.4-10.4); Platelet Count 50 10^3/uL (130-400); Red Blood Cell Count 3.51 10^6/uL (4.70-6.10); Red Cell Dist. Width 17.1 % (11.5-14.5)
--- NOTE | 2024-02-10 08:01 | CON.CAR ---
Addendum entered and electronically signed by Sandip Hand MD 02/10/24 14:56:
I saw and examined the patient.
The ART EDUCATOR's note was reviewed and I agree with the note.
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 He had an episode fo
aflutter but now back in sinus. His complaint is cough. He has no cp or palpitatons. But he wants his afib fixed. He has bibasilar rales but ist otherwise cachectic appearing and chronically ill. Regular rate and rhythm that has no murmur rubs or
gallops. Overall, I explained to him that atrial fibrillation is a chronic issue. It is not unusual for it to have episodes of accelerated rates and occurrences during COVID-19. Unfortunately, there is little to offer him. He is not a great
candidate for pacemaker. Therefore, would not start any prophylactic rate agents. Additionally, he is not on anticoagulation candidate. Would continue to treat the underlying causes of his exacerbation of COVID-19 and metastatic lung cancer. No
further cardiac recommendations at this time. Please call back with questions.
Original Note:
Consultation
Consultation Request
Date/Time Consultation Requested: 02/09/2024 23:00
Date/Time Consultation Performed: 02/10/2024 08:00
Requesting Provider: Dr. South
Performing Provider: SIVAKUMAR Fay for Dr. Hand
Reason for Consultation: Atrial fibrillation/flutter
Medical History
-
Chief Complaint: chest tightness and shortness of breath
History of Present Illness:
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
department with weakness, confusion, and cough for several days. His family reported increased somnolence, fatigue, poor oral intake, and confusion. He was seen in the emergency department 01/31/2024 for similar complaints. CAT scan at that time
showed increased metastatic lesion in the right temporal area with surrounding edema. He was started on steroids. He is currently on dexamethasone 4 mg every 8 hours. He was discharged and referred for oncology outpatient follow-up. Since
discharge, he has developed a cough without fever, chills, nausea, vomiting. He was found to be positive for COVID-19 in the emergency department. Cardiology was consulted for atrial flutter with a rate of 157 bpm. He is now back in sinus rhythm.
He has bradycardia when he is in sinus rhythm so he is currently off rate controlling medications. He is not on oral anticoagulation due to his brain mets and thrombocytopenia.
Due to the patient's confusion review of systems was limited. His is at the bedside and endorses increased confusion, anxiety, and a decline in oral intake at home.
Past Medical History
Past Medical History: Arrhythmias (Paroxysmal atrial fibrillation/flutter), Cancer (Stage IV NSCLC), HTN and Hypercholesterolemia
Past Surgical History: Other (Extensive back surgery secondary to metastatic disease)
Social History
Tobacco: Former Smoker
Alcohol: None
Drug: None
Personal:
Living: With Family
Family History
Family History: Reviewed & Not Pertinent
Allergies / Home Medications
Allergy/AdvReac Type Severity Reaction Status Date / Time
cefazolin [From [facility]] Allergy Rash Verified 01/31/24 17:17
vancomycin Allergy Rash Verified 01/31/24 17:17
�Medication �Instructions �Recorded �Confirmed �Type
atorvastatin 40 mg tablet 40 mg PO QPM 12/26/23 02/09/24 History
levetiracetam 500 mg tablet 500 mg PO BID 12/26/23 02/09/24 History
levothyroxine 50 mcg tablet 50 mcg PO DAILY 12/26/23 02/09/24 History
morphine 15 mg tablet,extended 15 mg PO Q12H 12/26/23 02/09/24 History
release
polyethylene glycol 3350 17 gram 8.5 grams PO DAILY 12/26/23 02/09/24 History
oral powder packet
trazodone 100 mg tablet 50 mg PO HS 12/26/23 02/09/24 History
dexamethasone 4 mg tablet 4 mg PO Q8H anti-Inflammation #45 02/01/24 02/09/24 Rx
tabs
lorazepam 0.5 mg tablet (Ativan) 0.25 mg PO BIDPRN PRN anxiety 02/09/24 02/09/24 History
pantoprazole 40 mg tablet,delayed 40 mg PO HS 02/09/24 02/09/24 History
release
Review of Systems
-
Unable to obtain full review of systems at this time due to: Other (Confusion)
Physical Exam
Vital Signs
Temp Pulse Resp BP Pulse Ox
97.4 F 53 14 115/70 100
02/10/24 06:33 02/10/24 06:33 02/10/24 06:33 02/10/24 06:33 02/10/24 06:33
Lab Results
02/10/24 04:54
02/10/24 04:54
Physical Exam
General: No Apparent Distress and Other (Cachexia)
HEENT: Normocephalic, Anicteric and Moist Mucous Membranes
Respiratory: Non Labored Respirations
Cardiac: S1/S2 and Regular Rhythm; Negative Peripheral Edema
Breast: Deferred by me
GI: Soft, Non Tender, Non Distended and Normal Bowel Sounds
Rectal: Deferred by Provider
Genito-urinary: No Costovertebral Tender
Musculoskeletal: No Cyanosis and No Edema
Skin: Warm and Dry
Neuro: Awake, Alert and Oriented (himself and place)
Hematologic/Lymphatic: No Lymphadenopathy
Psych: Confused
Impression / Plan
-
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
confusion, and cough who is positive for COVID-19. He was in flutter with RVR in the emergency department. He is back in sinus rhythm.
Paroxysmal atrial fibrillation
Paroxysmal atrial flutter
-Back in sinus, known baseline bradycardia without AV vaishali agent
-[id number] score at least 1 for age, he does have a history of HTN now off medical therapy
-Risk >benefit given brain metastasis and thrombocytopenia
-Risk of severe bradycardia with addition of rate controlling agents.
-Without AC, rhythm control is not advisable.
-Continue supportive conservative management.
Stage IV NSCLC
-Metastases to brain, spine status post chemotherapy/XRT
-Follows with [facility] (Dr. Lujan)
History of HTN, no longer on medical therapy due to soft blood pressures
Hypothyroidism, on levothyroxine
Data Reviewed
-
EKG: Report Reviewed by me (Atrial flutter with 2: 1 conduction, rate 157; sinus bradycardia, rate 58)
Radiology: Report Reviewed by me (CXR: Mild left perihilar pneumonia and small left pleural effusion.)
CT Scan: Report Reviewed by me (Head: Edema associated with known metastatic lesion along the posterior medial margin of the right temporal lobe has improved.)
Medical Tests (Nuc Med, Echo etc): Report Reviewed by me (Prior echocardiogram as above)
Labs: Labs Reviewed by me
Old Records: Reviewed
[2024-02-10] MEDS: DECADRON 4 MG PO ×3 (09:07→21:29)
[2024-02-10] MEDS: MS CONTIN (EXTENDED RELEASE) 15 MG PO ×2 (09:07→20:09)
[2024-02-10] MEDS: KEPPRA 500 MG PO ×2 (09:08→20:09)
--- NOTE | 2024-02-10 10:28 | W.PN.HOSP.TC ---
Today's Communication/Plan
-
wean O2 as able
PT/OT
F/U Oncology recommendations
Assessment / Plan
Assessment / Plan
A/P: Patient is a 69y M with PMH significant for paroxysmal atrial fibrillation (not on oral anticoagulation due to low platelet count), metastatic lung cancer who presents to ED complaining of recent cough, fatigue, confusion, found to be covid
+.
CXR
IMPRESSION:
Mild left perihilar pneumonia and small left pleural effusion.
HEAD CT
IMPRESSION:
No acute intracranial hemorrhage.
Edema associated with known metastatic lesion along the posterior medial margin of the right temporal lobe has improved.
No other significant interval change.
Covid-19
TME 2/2 above
- CXR shows L sided opacity and small L effusion.
- Afebrile, no leukocytosis (but pos L shift).
- on home steroids
- patient was 100% on 2L - wean O2
-PT/OT
Paroxysmal atrial fibrillation
Paroxysmal atrial flutter
-Back in sinus, known baseline bradycardia without AV vaishali agent
-[id number] score at least 1, risks outweigh benefits of AC given brain metastasis and thrombocytopenia
- appreciate cardiology
Stage IV NSCLC
- states not currently on any active therapy.
- seen in ER on 01/30 with finding of: ' interval increase in metastatic lesion and associated edema in the right temporal and occipital region, with edema also extending into the region of the posterior right lentiform nucleus, posterior limb of
the right internal capsule, right thalamus and right midbrain' - admission offered but declined at that time and patient discharged on steroids with close follow up
- continue Decadron
- F/U Oncology recommendations
- Continue Keppra for seizure prophylaxis.
- Continue HS trazodone and PRN lorazepam as needed for acute anxiety.
Thrombocytopenia
- Chronic / appears stable.
- No evidence of active bleeding.
- Follow for changes in cell counts, etc.
Hypothyroidism
- Continue current T4 supplementation.
- Update TFTs.
DVT Prophylaxis: SCDs
Code Status: Full
Anticipated Discharge: 24 - 48 hours
Subjective/Interval History
-
Date of Service: February 10, 2024
sleeping during interview, easily aroused
has had cough over past 10 days - no fevers, not getting worse
Objective Data
-
Labs:
Laboratory Results
02/10/24
04:54
WBC 6.0
Hgb 11.6 L
Hct 34.6 L
Plt Count 50 L D
Sodium 139
Potassium 4.0
Chloride 109 H
Carbon Dioxide 31 H
BUN 30 H
Creatinine 0.5 L
Glucose 97
Calcium 8.7
Vital Signs:
Vital Signs
Temp Pulse Resp BP Pulse Ox
97.4 F 53 14 115/70 100
02/10/24 06:33 02/10/24 06:33 02/10/24 06:33 02/10/24 06:33 02/10/24 06:33
I&O
02/09/24 02/10/24 02/11/24
06:59 06:59 06:59
Intake Total 240 / 240
Balance 240 / 240
Review of Systems
-
History Source: Patient
All other systems: Reviewed and negative
Physical Exam
-
General: Appears Chronically Ill
HEENT: PERRLA
Respiratory: Clear to Auscultation; Negative Wheezes
Cardiac: S1/S2
GI: Soft and Nontender
Musculoskeletal: No Edema
Skin: Warm; Negative Rash
Neuro: Sedated
Psych: Calm
Data Reviewed
-
Diagnostic Radiology: Report Reviewed by me
Labs: Labs Reviewed by me
--- NOTE | 2024-02-10 13:12 | W.PN.UPDATE ---
Update Note
Progress Note Update
per ST recs, patient should be NPO - this was also recommended in the past but patient and accepted aspiration risks
Discussed with , will keep NPO over the weekend with plans for VSE on Monday
She described increase mucus; possible bacterial component to pneumonia and I will go ahead and start IV Ceftriaxone/Doxy. (tolerated cefepime in past, allergies to vanc and cefazolin in chart but patient's said he got both at the same time).
-obtain sputum sample if possible
--- NOTE | 2024-02-10 14:00 | PTOTSP ---
Speech Therapy
Presentation: Patient was oriented and willing to participate. Patient demonstrated baseline coughing and decreased oral secretion management evidenced by excessive coughing and ejection of thick secretions which required assistance from SUPERVISOR ASSEMBLING.
Previous ST: 12/28/23 Speech VSE note: SUPERVISOR ASSEMBLING recommended NPO at this time as patient exhibited aspiration, penetration, and pharyngeal residue which would likely result in aspiration. SUPERVISOR ASSEMBLING recommended NPO but patient accepted aspiration risks due to not
having pna. Patient was put on a IDDSI level 4; puree solids and thin liquid diet. Of note, thickened liquids would like be aspirated so thickening liquids was not recommended.
Swallowing Function: SUPERVISOR ASSEMBLING trialed thin liquids (cup and straw) and puree solids in which patient demonstrated immediate and delayed harsh, wet coughing that increased with all presentations. Patient's stated that patient's coughing has increased
lately with PO which was noted during the session. Patient consistently utilized ample tissues and napkins to help with secretion management as thick secretions were expelled from the oral cavity throughout the session. SUPERVISOR ASSEMBLING did not trial thickened
liquids due to the recent VSE recommendations and findings (see 12/28/23 VSE note for details) and poor oral secretion management. Of note, thickening liquids can make it more difficult to be expelled from the airway if aspirated.
Given the patient's presentation, hx of aspiration/ dysphagia, medical condition, and current pna, SUPERVISOR ASSEMBLING recommended NPO at this time with VSE to quantify swallowing function. Patient and his adamantly refused NPO at this time as they were
concerned about patient's prognosis and well-being if he does not eat for ~2 days. SUPERVISOR ASSEMBLING spent time providing the family with education, options, and precautions. Patient and his family stated that they would like to accept aspiration risks and eat/
drink as they would like.
SUPERVISOR ASSEMBLING differed recommendations to MD who spoke with patient and his . They agreed to NPO with repeat VSE to be completed.
Recommend NPO at this time with repeat VSE.
Recommendations:
1) NPO at this time
2) Vigorous oral care
3) Patient not a candidate for ARHP at this time due to poor secretion management
4) VSE
Plan: SUPERVISOR ASSEMBLING will continue to follow; pending hospitalization.
[2024-02-10] MEDS: D5LR 1000 IV (15:09)
[2024-02-10] MEDS: TYLENOL 650 MG PO (15:09)
--- NOTE | 2024-02-10 17:20 | CON.ONC ---
Impression
Impression
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
Plan
Plan
patient with limited insight though repeats concepts reviewed with short term forgetfulness; d/w reimaging with MRI to ascertain if he can receive gamma knofe therapy as he remains a poor surgical candidate.
Patient History
History of Present Illness
unfortunate 69yo WM with stage 4 SC CA lung now in remission following 2 year course of Cyramza comlicated by right frontotemporal mets for which he received radiation therapy @ [facility] 01/2023 now readmitted with recently discovered recurrent edema and
ring like mass in the same area present since imaging of October though with slow progression. He was admitted with TME for which he is clearing per on steroid therapy.
Past-Medical/Surgical History
PAF/ Staph wound infection/ laminectomy for spine relapse 2021;
Patient Medication
�Medication �Instructions �Recorded �Confirmed �Last Taken �Type
atorvastatin 40 mg tablet 40 mg PO QPM High Cholesterol 12/26/23 02/09/24 02/08/24 History
levetiracetam 500 mg tablet 500 mg PO BID Seizures 12/26/23 02/09/24 02/09/24 History
levothyroxine 50 mcg tablet 50 mcg PO DAILY Thyroid 12/26/23 02/09/24 02/09/24 History
morphine 15 mg tablet,extended 15 mg PO Q12H Pain 12/26/23 02/09/24 02/09/24 History
release
polyethylene glycol 3350 17 gram 8.5 grams PO DAILY Constipation 12/26/23 02/09/24 02/09/24 History
oral powder packet
trazodone 100 mg tablet 50 mg PO HS Mental Health/Anxiety 12/26/23 02/09/24 02/08/24 History
dexamethasone 4 mg tablet 4 mg PO Q8H anti-Inflammation #45 02/01/24 02/09/24 02/09/24 16:30 Rx
tabs
lorazepam 0.5 mg tablet (Ativan) 0.25 mg PO BIDPRN PRN anxiety 02/09/24 02/09/24 Unknown History
pantoprazole 40 mg tablet,delayed 40 mg PO HS GERD 02/09/24 02/09/24 02/08/24 History
release
Active Medications
Generic Name Dose Route Start Last Admin
Trade Name Freq PRN Reason Stop Dose Admin
Acetaminophen 650 mg 02/09/24 23:01 02/10/24 15:09
Acetaminophen 325 Mg Tablet PO 03/08/24 23:00 650 mg
Q4HPRN PRN Administration
Mild Pain / Temp > 101
Atorvastatin Calcium 40 mg 02/10/24 18:00
Atorvastatin (Lipitor) 40 Mg Tablet PO 03/09/24 17:59
QPM THELMA
Ceftriaxone Sodium 1,000 mg 02/10/24 20:00
Ceftriaxone 1000 Mg / 10 Ml Vial IV
Q24H THELMA
Dexamethasone 4 mg 02/10/24 08:00 02/10/24 15:10
Dexamethasone 4 Mg Tablet PO 03/09/24 07:59 4 mg
TID THELMA Administration
Heparin Sodium (Porcine) 500 unit 02/10/24 06:30
Heparin Flush Pf (100 Unit/Ml) 5 Ml Syringe IV 03/09/24 06:29
PER PROTOCOL THELMA
Dextrose/Lactated Ringer's 1,000 mls @ 60 mls/hr 02/10/24 14:00 02/10/24 15:09
D5lr IV 1,000 mls
.[id number] THELMA Administration
Doxycycline Hyclate 100 mg/ 260 mls @ 260 mls/hr 02/10/24 20:00
Sodium Chloride IV
Q12H THELMA
Levetiracetam 500 mg 02/10/24 08:00 02/10/24 09:08
Levetiracetam 500 Mg Regular Release Tablet PO 03/09/24 07:59 500 mg
BID THELMA Administration
Levothyroxine Sodium 50 mcg 02/10/24 06:00 02/10/24 05:46
Levothyroxine 50 Mcg Tablet PO 03/09/24 05:59 50 mcg
DAILY@0600 THELMA Administration
Lorazepam 0.25 mg 02/09/24 23:01 02/09/24 23:47
Lorazepam 0.5 Mg Tablet PO 03/08/24 23:00 0.25 mg
BIDPRN PRN Administration
anxiety
Morphine Sulfate 15 mg 02/09/24 23:01 02/10/24 09:07
Morphine 15 Mg Extended Release Tablet PO 02/23/24 23:00 15 mg
Q12 THELMA Administration
Pantoprazole Sodium 40 mg 02/09/24 23:01 02/09/24 23:46
Pantoprazole 40 Mg Delayed Release Tablet PO 03/08/24 23:00 40 mg
HS THELMA Administration
Polyethylene Glycol 17 grams 02/09/24 23:01
Polyethylene Glycol Powder 17 Grams Packet PO 03/08/24 23:00
DAILYPRN PRN
Constipation
Sodium Chloride 0 flush 02/09/24 23:00
Sodium Chloride 0.9% (Flush) Syringe IV 03/08/24 22:59
PER PROTOCOL THELMA
Sterile Water 10 ml 02/10/24 20:00
Sterile Water For Injection 10 Ml Vial IV 03/09/24 19:59
Q24H THELMA
Trazodone HCl 50 mg 02/10/24 22:00
Trazodone 50 Mg Tablet PO 03/09/24 21:59
HS THELMA
Review of Systems
-
History Source: Family
All Other Systems: Reviewed and Negative (pt confused though per slowly improving since admission)
Physical Exam
-
General: Appears Chronically Ill
HEENT: Moist Mucous Membranes
Cardiology: Irregular Rate/Rhythm
Pulmonary: Rhonchi
GI: Soft and Normal Bowel Sounds
Musculoskeletal: No Clubbing, No Cyanosis and No Edema
Psych: Confused
Labs
Lab Results
WBC 6.0 10^3/uL (4.8-10.8) 02/10/24 04:54
RBC 3.51 10^6/uL (4.70-6.10) L 02/10/24 04:54
Hgb 11.6 g/dL (13.0-18.0) L 02/10/24 04:54
Hct 34.6 % (39.0-52.0) L 02/10/24 04:54
MCV 98.6 fL (80.0-94.0) H 02/10/24 04:54
MCH 33.0 pg (27.0-31.0) H 02/10/24 04:54
MCHC 33.5 g/dL (33.0-37.0) 02/10/24 04:54
RDW 17.1 % (11.5-14.5) H 02/10/24 04:54
Plt Count 50 10^3/uL (130-400) L D 02/10/24 04:54
MPV 11.7 fL (7.4-10.4) H 02/10/24 04:54
Abs Immat Gran (auto) 0.0 10^3/uL (0-0.05) 02/09/24 17:58
Absolute Neuts (auto) 7.3 10^3/uL (1.4-6.5) H 02/09/24 17:58
Absolute Lymphs (auto) 0.2 10^3/uL (1.2-3.4) L 02/09/24 17:58
Absolute Monos (auto) 0.5 10^3/uL (0.1-0.6) 02/09/24 17:58
Absolute Eos (auto) 0.0 10^3/uL (0-0.7) 02/09/24 17:58
Absolute Basos (auto) 0.0 10^3/uL (0-0.2) 02/09/24 17:58
Immature Gran % 0.4 % (0-0.5) 02/09/24 17:58
Neutrophils % 90.7 % (42.2-75.2) H 02/09/24 17:58
Lymphocytes % 2.8 % (20.5-51.1) L 02/09/24 17:58
Monocytes % 6.2 % (1.7-9.3) 02/09/24 17:58
Eosinophils % 0.0 % (0-6) 02/09/24 17:58
Basophils % 0.1 % (0-2) 02/09/24 17:58
Creatinine 0.5 mg/dL (0.7-1.3) L 02/10/24 04:54
Vital Signs
Vital Signs
Temp Pulse Resp BP Pulse Ox
97.5 F 66 20 149/85 100
02/10/24 15:28 02/10/24 15:28 02/10/24 15:28 02/10/24 15:28 02/10/24 16:32
[2024-02-10] MEDS: LIPITOR 40 MG PO (17:56)
[2024-02-10] MEDS: ROCEPHIN 1000 MG IV (20:06)
[2024-02-10] MEDS: STERILE WATER FOR INJECTION 10 ML IV (20:09)
[2024-02-10] MEDS: VIBRAMYCIN 260 MG IV (20:10)
[2024-02-10] MEDS: PROTONIX 40 MG PO (21:29)
[2024-02-10] MEDS: DESYREL 50 MG PO (21:30)
[2024-02-11] VITALS (7 sets, daily range): BP systolic 100–127; BP diastolic 68–76; PULSE 60–145
--- NOTE | 2024-02-11 00:45 | W.PN.UPDATE ---
Update Note
Progress Note Update
Patient is Tachycardia, with hr between 120s-170s, bp91/71, afebrile. Radha SOB or chest pain. Has no output since the beginning of the shift.
-EKG shows a-fib with RVR, bladder scan with over 400cc.
-Stat lab of (cbc, bmp and magnesium).
-NSS 500cc bolus was given and one time dose of IV Lopressor 2.5 mg was given.
[2024-02-11] MEDS: NSS 500 IV (01:04)
[2024-02-11 01:08] LABS: % Basophils 0.1 % (0-2); % Immature Granulocytes 0.3 % (0-0.5); % Lymphocytes 4.3 % (20.5-51.1); % Monocytes 7.5 % (1.7-9.3); % Neutrophils 87.8 % (42.2-75.2); Absolute Lymphocytes 0.3 10^3/uL (1.2-3.4); Absolute Monocytes 0.5 10^3/uL (0.1-0.6); Absolute Neutrophils 5.9 10^3/uL (1.4-6.5); Hematocrit 36.7 % (39.0-52.0); Hemoglobin 12.3 g/dL (13.0-18.0); Mean Corp Hgb Conc. 33.5 g/dL (33.0-37.0); Mean Corpuscular Hgb 33.3 pg (27.0-31.0); Mean Corpuscular Volume 99.5 fL (80.0-94.0); Mean Platelet Volume 8.9 fL (7.4-10.4); Nucleated Red Blood Cells % 0 % (-); Platelet Count 46 10^3/uL (130-400); Red Blood Cell Count 3.69 10^6/uL (4.70-6.10); White Blood Cell Count 6.8 10^3/uL (4.8-10.8)
[2024-02-11 01:11] LABS: Blood Urea Nitrogen 31 mg/dl (9-20); Calcium 8.8 mg/dl (8.4-10.2); Carbon Dioxide 29 mmol/L (22-30); Chloride 110 mmol/L (98-107); Estimated Creatinine Clearance 93 ml/min; Glucose 113 mg/dl (70-99); Potassium 4.3 mmol/L (3.5-5.1); Sodium 140 mmol/L (135-145); eGFR > 60.00
[2024-02-11] MEDS: LOPRESSOR 2.5 MG IV (01:25)
--- NOTE | 2024-02-11 01:59 | PTCARENOTE ---
Patient HR converted to Afib RVR and sustaining in the 150s-160s, with max of 190s. BP 91/71, afebrile. Patient asleep when this began, denies all symptoms including chest pain/tightness and dizziness. EKG done. Straight cath for 300ml. NON DESTRUCTIVE TESTING SCIENTIST
notified. 500ml NS bolus ordered and 2.5mg IV Lopressor. HR lowered to 110s still in Afib. BP 101/69. Pt resting comfortably in bed, no complaints at this time.
[2024-02-11] MEDS: TESSALON PERLES 100 MG PO (02:08)
[2024-02-11] MEDS: TYLENOL 650 MG PO (02:59)
[2024-02-11] MEDS: SYNTHROID 50 MCG PO (05:20)
[2024-02-11 06:37] LABS: ALT (SGPT) 44 U/L (0-50); AST (SGOT) 56 U/L (17-59); Albumin 2.1 g/dl (3.5-5.0); Alkaline Phosphatase 64 U/L (38-126); Blood Urea Nitrogen 29 mg/dl (9-20); Calcium 8.6 mg/dl (8.4-10.2); Carbon Dioxide 31 mmol/L (22-30); Chloride 109 mmol/L (98-107); Estimated Creatinine Clearance 93 ml/min; Glucose 120 mg/dl (70-99); Potassium 4.1 mmol/L (3.5-5.1); Sodium 139 mmol/L (135-145); Total Protein 5.1 g/dl (6.3-8.2); eGFR > 60.00
[2024-02-11] MEDS: VIBRAMYCIN 260 MG IV ×2 (08:24→20:46)
[2024-02-11] MEDS: KEPPRA 500 MG PO ×2 (08:24→20:45)
[2024-02-11] MEDS: D5LR 1000 IV (08:24)
[2024-02-11] MEDS: DECADRON 4 MG PO ×3 (08:24→21:58)
[2024-02-11] MEDS: MS CONTIN (EXTENDED RELEASE) 15 MG PO ×2 (08:29→20:45)
--- NOTE | 2024-02-11 09:37 | W.PN.HOSP.TC ---
Today's Communication/Plan
-
NPO, IVF with D5
VSE tomorrow AM
Ceftriaxone/Doxycycline
LEGAL DOCUMENT ASSISTANT Decadron
Appreciate Oncology
Appreciate ST
Assessment / Plan
Assessment / Plan
A/P: Patient is a 69y M with PMH significant for paroxysmal atrial fibrillation (not on oral anticoagulation due to low platelet count), metastatic lung cancer who presents to ED complaining of recent cough, fatigue, confusion, found to be covid
+.
CXR
IMPRESSION:
Mild left perihilar pneumonia and small left pleural effusion.
HEAD CT
IMPRESSION:
No acute intracranial hemorrhage.
Edema associated with known metastatic lesion along the posterior medial margin of the right temporal lobe has improved.
No other significant interval change.
Covid-19 with concern for superimposed bacterial infection
TME 2/2 above
Aspiration Pneumonia, Aspiration risk
Hypoxic Respiratory Insufficiency
- CXR shows L sided opacity and small L effusion.
- symptoms started 10 days prior to arrival, he is stable on 2L
- continue LEGAL DOCUMENT ASSISTANT Decadron
- continue antibiotics (S/p LEvaquin in ER, now receiving Cef/Doxy (does not require cover of anaerobes for aspiration pneumonia)
- wean O2 as able
Concern for aspiration pneumonia, dysphagia
- he's been seen by ST in past and NPO recommended but patient and accepted aspiration risks. re-evaluated and recommendations are for NPO. Difficulty situation as patient remains full code. I spoke to and patient and again this
morning about need to discuss GOC if he wants to eat with aspiration risk. For now he remains NPO through the weekend with plans for VSE tomorrow morning. They are told that if he remains an aspiration risk, goals of care discussions need to
happen sooner rather than later. Per Dr. Lane, unclear if patient can cooperate for further treatment with radiation
- today patient is only focused on getting water - tried to rediscuss this to him and and unclear how much got through
Paroxysmal atrial fibrillation
Paroxysmal atrial flutter
-Back in sinus, known baseline bradycardia without AV vaishali agent
-[id number] score at least 1, risks outweigh benefits of AC given brain metastasis and thrombocytopenia
- appreciate cardiology
Stage IV NSCLC
- states not currently on any active therapy.
- seen in ER on 01/30 with finding of: ' interval increase in metastatic lesion and associated edema in the right temporal and occipital region, with edema also extending into the region of the posterior right lentiform nucleus, posterior limb of
the right internal capsule, right thalamus and right midbrain' - admission offered but declined at that time and patient discharged on steroids with close follow up
- continue Decadron
- appreciate Oncology (see above)
- Continue Keppra for seizure prophylaxis.
- continue goals of care discussions
Anxiety
- Continue HS trazodone and PRN lorazepam as needed for acute anxiety.
Thrombocytopenia
- Chronic / appears stable.
- No evidence of active bleeding.
- Follow for changes in cell counts, etc.
Hypothyroidism
- Continue current T4 supplementation.
- Update TFTs.
DVT Prophylaxis: SCDs
Code Status: Full
51 minutes spent on patient evaluation, medical decision making, coordination of care
Anticipated Discharge: > 48 hours
Subjective/Interval History
-
Date of Service: February 11, 2024
patient wanting to drink water
more agitated today
Objective Data
-
Labs:
Laboratory Results
02/11/24 02/11/24
00:49 05:10
WBC 6.8
Hgb 12.3 L
Hct 36.7 L
Plt Count 46 L
Sodium 140 139
Potassium 4.3 4.1
Chloride 110 H 109 H
Carbon Dioxide 29 31 H
BUN 31 H 29 H
Creatinine 0.5 L 0.5 L
Glucose 113 H 120 H
Calcium 8.8 8.6
Total Bilirubin 1.0
AST 56
ALT 44
Alkaline Phosphatase 64
Vital Signs:
Vital Signs
Temp Pulse Resp BP Pulse Ox
97.3 F 102 20 100/69 98
02/11/24 07:05 02/11/24 07:05 02/11/24 07:05 02/11/24 07:05 02/11/24 07:05
I&O
02/10/24 02/11/24 02/12/24
06:59 06:59 06:59
Intake Total 240 / 240 440 / 440
Output Total 300 / 300
Balance 240 / 240 140 / 140
Review of Systems
-
History Source: Patient
All other systems: Reviewed and negative
Physical Exam
-
General: Appears Chronically Ill
HEENT: PERRLA
Respiratory: Clear to Auscultation; Negative Wheezes
Cardiac: S1/S2
GI: Soft and Nontender
Musculoskeletal: No Edema
Skin: Warm; Negative Rash
Neuro: Awake and Alert
Psych: Confused and Agitated
Data Reviewed
-
Diagnostic Radiology: Report Reviewed by me
Labs: Labs Reviewed by me
--- NOTE | 2024-02-11 10:48 | W.PN.ONC ---
Today's Communication / Plan
-
disucssed hospice option as he insists he will not travel downtown though is trying to convince him otherwise
Impression
Impression
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
Plan
Plan
patient with continued limited insight though repeats concepts reviewed with short term forgetfulness; d/w reimaging with MRI to ascertain if he can receive gamma knofe therapy as he remains a poor surgical candidate. They wish to speak with
Dr Lujan as to next steps
Subjective/Objective
Subjective/Objective
Vital Signs:
Vital Signs
Temp Pulse Resp BP Pulse Ox
97.3 F 102 20 100/69 98
02/11/24 07:05 02/11/24 07:05 02/11/24 07:05 02/11/24 07:05 02/11/24 07:05
Lab Results:
Laboratory Data
WBC 6.8 10^3/uL (4.8-10.8) 02/11/24 00:49
Hgb 12.3 g/dL (13.0-18.0) L 02/11/24 00:49
Plt Count 46 10^3/uL (130-400) L 02/11/24 00:49
eGFR > 60.00 02/11/24 05:10
Orders
Orders
Orders From Last 24 Hours
02/11/24 14:24
MR Brain W/o & With Contrast Routine
--- NOTE | 2024-02-11 14:45 | CM ---
Addendum entered by Deb Oconnor 02/11/24 14:49:
No financial insecurities
Has Rx plan through [facility]
Original Note:
CM spoke with on phone
Discussion with nursing and pt acutely confused
Pt with metastatic disease and COVID+
Pt and spouse [place] in a [place] with ramp entrance
Pt typically is able to ambulate short distances with a WW and able to self propel WC for longer distances
Pt typically manages his own personal care
Lately, spouse has been managing care and assistance with ADLs
Pt is current with Palliative (following for the past few years) and current with [facility]
He has good experience at both [place] and [facility]
PCP- Shashank Kulkarni
rx- [facility] [address]
PT/OT following with VN recommendations
Onc also following
Plans for NPO/VSE on this admission
GOC discussions with medical team
Discharge Disposition- home with [facility], watch for higher needs
[2024-02-11] MEDS: LIPITOR 40 MG PO (18:03)
[2024-02-11] MEDS: ATIVAN 0.25 MG PO (18:05)
[2024-02-11] MEDS: ROCEPHIN 1000 MG IV (20:45)
[2024-02-11] MEDS: STERILE WATER FOR INJECTION 10 ML IV (20:45)
[2024-02-11] MEDS: PROTONIX 40 MG PO (21:57)
[2024-02-11] MEDS: DESYREL 50 MG PO (21:58)
[2024-02-12] VITALS (8 sets, daily range): BP systolic 115–159; BP diastolic 66–90; PULSE 51–107; O2SAT 93
[2024-02-12] MEDS: D5LR 1000 IV (02:49)
[2024-02-12 05:08] LABS: % Immature Granulocytes 0.6 % (0-0.5); % Lymphocytes 3.3 % (20.5-51.1); % Monocytes 6.1 % (1.7-9.3); Absolute Lymphocytes 0.2 10^3/uL (1.2-3.4); Absolute Monocytes 0.3 10^3/uL (0.1-0.6); Absolute Neutrophils 4.8 10^3/uL (1.4-6.5); Hematocrit 33.7 % (39.0-52.0); Hemoglobin 11.3 g/dL (13.0-18.0); Mean Corp Hgb Conc. 33.5 g/dL (33.0-37.0); Mean Corpuscular Hgb 33.2 pg (27.0-31.0); Mean Corpuscular Volume 99.1 fL (80.0-94.0); Mean Platelet Volume 10.4 fL (7.4-10.4); Nucleated Red Blood Cells % 0 % (-); Platelet Count 44 10^3/uL (130-400); Red Cell Dist. Width 17.1 % (11.5-14.5); White Blood Cell Count 5.4 10^3/uL (4.8-10.8)
[2024-02-12 05:13] LABS: Blood Urea Nitrogen 24 mg/dl (9-20); Calcium 8.6 mg/dl (8.4-10.2); Carbon Dioxide 31 mmol/L (22-30); Chloride 110 mmol/L (98-107); Estimated Creatinine Clearance 93 ml/min; Glucose 132 mg/dl (70-99); Magnesium 1.9 mg/dl (1.6-2.3); Potassium 4.1 mmol/L (3.5-5.1); Sodium 139 mmol/L (135-145); eGFR > 60.00
[2024-02-12] MEDS: SYNTHROID 50 MCG PO (05:55)
[2024-02-12] MEDS: VIBRAMYCIN 260 MG IV ×2 (08:02→20:57)
[2024-02-12] MEDS: DECADRON 4 MG PO ×3 (08:02→22:39)
[2024-02-12] MEDS: KEPPRA 500 MG PO ×2 (08:02→20:45)
[2024-02-12] MEDS: MS CONTIN (EXTENDED RELEASE) 15 MG PO ×2 (08:02→20:45)
--- NOTE | 2024-02-12 09:18 | W.PN.ONC ---
Today's Communication / Plan
-
Patient with continued limited insight
Reimaging with MRI is recommended to ascertain if he can receive gamma knife therapy as he remains a poor surgical candidate
Monitor mental status
Aspiration precautions
Bleeding precautions
Goals of care ongoing
Impression
Impression
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
+COVID-19
Change in mental status
Aspiration PNA
Macrocytosis
Thrombocytopenia
Subjective/Objective
Subjective/Objective
patient OOB to the chair. he is intermittently agitated with conversation and yells he 'should not be here'. He denies pain/fever.
Vital Signs:
Vital Signs
Temp Pulse Resp BP Pulse Ox
97.7 F 51 20 132/66 9
02/12/24 07:10 02/12/24 07:10 02/12/24 07:10 02/12/24 07:10 02/12/24 07:10
physical exam:
aaox2, agitation/forgetfulness
nasal cannula oxygen, +cough
Lab Results:
Laboratory Data
WBC 5.4 10^3/uL (4.8-10.8) 02/12/24 04:31
Hgb 11.3 g/dL (13.0-18.0) L 02/12/24 04:31
Plt Count 44 10^3/uL (130-400) L 02/12/24 04:31
eGFR > 60.00 02/12/24 04:31
02/09/[address]: No acute intracranial hemorrhage.Edema associated with known metastatic lesion along the posterior medial margin of the right temporal lobe has improved.No other significant interval change.
02/09/24 CXR: Mild left perihilar pneumonia and small left pleural effusion
--- NOTE | 2024-02-12 10:10 | PTOTSP ---
Video Swallow Examination
Weak tongue base retraction, pharyngeal stripping action, no epiglottic inversion, minimal anterior hyoid movement resulted in moderate pharyngeal stasis with incomplete clearance following dry swallow.
Due to delayed swallow, there was aspiration of thin and nectar thick liquid by teaspoon. Patient unable to follow direction for use of chin tuck. High risk for chronic aspiration including from pharyngeal stasis.
Recommend
1. IDDSI 4 and Moderately thick liquids
2. Meds one at a time whole in applesauce.
3. Single sips/bites
4. Dry swallows
5. Aspiration precautions
6. Follow up ST at next level of care
Reviewed results/recommendations with patient and .
--- NOTE | 2024-02-12 11:45 | W.PN.HOSP.TC ---
Today's Communication/Plan
-
Monitor vital signs see plan
Wean oxygen as tolerated
Continue with antibiotics
VSE today; now on pur�ed diet
Oncology to see today
MRI pending
Discussed with spouse at bedside
Assessment / Plan
Assessment / Plan
A/P: Patient is a 69y M with PMH significant for paroxysmal atrial fibrillation (not on oral anticoagulation due to low platelet count), metastatic lung cancer who presents to ED complaining of recent cough, fatigue, confusion, found to be covid
+.
CXR
IMPRESSION:
Mild left perihilar pneumonia and small left pleural effusion.
HEAD CT
IMPRESSION:
No acute intracranial hemorrhage.
Edema associated with known metastatic lesion along the posterior medial margin of the right temporal lobe has improved.
No other significant interval change.
General: Appears Chronically Ill
HEENT: PERRLA
Respiratory: Clear to Auscultation; Negative Wheezes
Cardiac: S1/S2
GI: Soft and Nontender
Musculoskeletal: No Edema
Skin: Warm; Negative Rash
Neuro: Awake and Alert
Psych: Confused and Agitated
Covid-19 with concern for superimposed bacterial infection
TME 2/2 above
Aspiration Pneumonia, Aspiration risk
Hypoxic Respiratory Insufficiency
- CXR shows L sided opacity and small L effusion.
- symptoms started 10 days prior to arrival, he is stable on 2L
- continue ELECTRIC TAPE SLITTER Decadron
- continue antibiotics (S/p LEvaquin in ER, now receiving Cef/Doxy (does not require cover of anaerobes for aspiration pneumonia)
- wean O2 as able
Concern for aspiration pneumonia, dysphagia
- he's been seen by ST in past and NPO recommended but patient and accepted aspiration risks. re-evaluated and recommendations are for NPO. Difficulty situation as patient remains full code. I spoke to and patient and again this
morning about need to discuss GOC if he wants to eat with aspiration risk. Status post VSE 02/11. Now on pur�ed diet with moderately thick liquid. Per Dr. Lane, unclear if patient can cooperate for further treatment with radiation
- today patient is only focused on getting water - tried to rediscuss this to him and and unclear how much got through
oncology for goals of care discussion
Paroxysmal atrial fibrillation
Paroxysmal atrial flutter
-Back in sinus, known baseline bradycardia without AV vaishali agent
-[id number]-YRIe score at least 1, risks outweigh benefits of AC given brain metastasis and thrombocytopenia
- appreciate cardiology
Stage IV NSCLC
- states not currently on any active therapy.
- seen in ER on 01/30 with finding of: ' interval increase in metastatic lesion and associated edema in the right temporal and occipital region, with edema also extending into the region of the posterior right lentiform nucleus, posterior limb of
the right internal capsule, right thalamus and right midbrain' - admission offered but declined at that time and patient discharged on steroids with close follow up
- continue Decadron
- appreciate Oncology (see above)
- Continue Keppra for seizure prophylaxis.
- continue goals of care discussions
MRI brain ordered by oncology, pending
Anxiety
- Continue HS trazodone and PRN lorazepam as needed for acute anxiety.
Thrombocytopenia
- Chronic / appears stable.
- No evidence of active bleeding.
- Follow for changes in cell counts, etc.
Hypothyroidism
- Continue current T4 supplementation.
- Update TFTs.
DVT Prophylaxis: SCDs
Code Status: Full
53 minutes spent on patient evaluation, medical decision making, coordination of care
Anticipated Discharge: 24 - 48 hours
Subjective/Interval History
-
Date of Service: February 12, 2024
Denies pain
Objective Data
-
Labs:
Laboratory Results
02/12/24
04:31
WBC 5.4
Hgb 11.3 L
Hct 33.7 L
Plt Count 44 L
Sodium 139
Potassium 4.1
Chloride 110 H
Carbon Dioxide 31 H
BUN 24 H
Creatinine 0.5 L
Glucose 132 H
Calcium 8.6
Vital Signs:
Vital Signs
Temp Pulse Resp BP Pulse Ox
97.7 F 51 20 132/66 9
02/12/24 07:10 02/12/24 07:10 02/12/24 07:10 02/12/24 07:10 02/12/24 07:10
I&O
02/11/24 02/12/24 02/13/24
06:59 06:59 06:59
Intake Total 440 / 440 120 / 120
Output Total 300 / 300
Balance 140 / 140 120 / 120
--- NOTE | 2024-02-12 11:46 | W.PN.ONC2 ---
Today's Communication / Plan
-
- MRI brain today.
- supportive care for COVID pneumonia.
- ongoing GOC discussion with family and pt.
Impression
Impression
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
+COVID-19
Change in mental status
Plan
Plan
patient with continued limited insight though repeats concepts reviewed with short term forgetfulness.
plan for reimaging with MRI to ascertain if he can receive gamma knife therapy to site of recurrent brain lesion (prior SBRT in similar region) as he remains a poor surgical candidate.
They wish to speak with Dr Lujan as to next steps
Subjective/Objective
Chief Complaint
metastatic squamous cell carcinoma, COVID pneumonia
Subjective
pt sitting up in chair. He notes being hungry. Denies worsening SOB, headache. He is AAOx3, intermittently agitated.
Vital Signs:
Vital Signs
Temp Pulse Resp BP Pulse Ox
97.7 F 51 20 132/66 9
02/12/24 07:10 02/12/24 07:10 02/12/24 07:10 02/12/24 07:10 02/12/24 07:10
Lab Results:
Laboratory Data
WBC 5.4 10^3/uL (4.8-10.8) 02/12/24 04:31
Hgb 11.3 g/dL (13.0-18.0) L 02/12/24 04:31
Plt Count 44 10^3/uL (130-400) L 02/12/24 04:31
eGFR > 60.00 02/12/24 04:31
Physical Exam
HEENT: Other (thin body habitus ); No Jaundice
Cardiology: Normal Sinus Rhythm
Pulmonary: Wheezes and Rhonchi
Extremities: No Edema
Neuro: Non Focal
Review of Systems
Review of Systems
Constitutional: Denies Fever
Respiratory: Reports Cough; Denies Dyspnea
Cardiovascular: Denies Chest Pain
Neurological: Denies Headache
--- NOTE | 2024-02-12 15:34 | CM ---
IV/AB, Video swallow and MRI head today, [facility] discussions: Discharge Plan of Care: Home with [facility] for VN, PT/OT. Referral forwarded.
[2024-02-12] MEDS: LIPITOR 40 MG PO (17:34)
[2024-02-12] MEDS: ATIVAN 0.25 MG PO (18:23)
--- NOTE | 2024-02-12 18:31 | PTCARENOTE ---
Patient went into Afib with RVR unsustained with HR in the 170's. Patient was able to break on own, down to 101. Patient with history of Afib but not on anticoagulant EKG is done, BP 148/76, 99% on room air. Ativan given, dayteam made aware; no
further intervention at moment (per Dr Sarabia). Will continue to monitor.
[2024-02-12 19:53] LABS: Hepatitis C Antibody Negative (Negative)
[2024-02-12] MEDS: D5LR IV (20:29)
[2024-02-12] MEDS: ROCEPHIN 1000 MG IV (20:45)
[2024-02-12] MEDS: STERILE WATER FOR INJECTION 10 ML IV (20:46)
[2024-02-12] MEDS: DESYREL 50 MG PO (22:39)
[2024-02-12] MEDS: PROTONIX 40 MG PO (22:39)
[2024-02-12] MEDS: MIRALAX 17 GRAMS PO (22:43)
[2024-02-13 03:01] VITALS: BP 114/84
[2024-02-13 06:45] LABS: % Basophils 0.1 % (0-2); % Immature Granulocytes 0.5 % (0-0.5); % Lymphocytes 3.5 % (20.5-51.1); % Monocytes 6.7 % (1.7-9.3); % Neutrophils 89.2 % (42.2-75.2); Absolute Lymphocytes 0.3 10^3/uL (1.2-3.4); Absolute Monocytes 0.5 10^3/uL (0.1-0.6); Absolute Neutrophils 6.7 10^3/uL (1.4-6.5); Hematocrit 40.5 % (39.0-52.0); Hemoglobin 13.9 g/dL (13.0-18.0); Mean Corp Hgb Conc. 34.3 g/dL (33.0-37.0); Mean Corpuscular Hgb 33.6 pg (27.0-31.0); Mean Corpuscular Volume 97.8 fL (80.0-94.0); Mean Platelet Volume 12.3 fL (7.4-10.4); Nucleated Red Blood Cells % 0 % (-); Platelet Count 46 10^3/uL (130-400); Red Blood Cell Count 4.14 10^6/uL (4.70-6.10); Red Cell Dist. Width 17.1 % (11.5-14.5); White Blood Cell Count 7.5 10^3/uL (4.8-10.8)
[2024-02-13 07:00] LABS: Blood Urea Nitrogen 20 mg/dl (9-20); Calcium 8.9 mg/dl (8.4-10.2); Carbon Dioxide 27 mmol/L (22-30); Chloride 108 mmol/L (98-107); Estimated Creatinine Clearance 93 ml/min; Glucose 123 mg/dl (70-99); Potassium 3.9 mmol/L (3.5-5.1); Sodium 140 mmol/L (135-145); eGFR > 60.00
[2024-02-13] MEDS: SYNTHROID 50 MCG PO (07:27)
[2024-02-13 08:30] VITALS: BP 128/74; BP 128/88; BP 135/107; PULSE 74; PULSE 92; PULSE 96
[2024-02-13] MEDS: KEPPRA 500 MG PO ×2 (08:35→20:44)
[2024-02-13] MEDS: VIBRAMYCIN 260 MG IV ×2 (08:35→20:45)
[2024-02-13] MEDS: DECADRON 4 MG PO ×2 (08:35→21:50)
[2024-02-13] MEDS: MS CONTIN (EXTENDED RELEASE) 15 MG PO ×2 (08:35→20:44)
--- NOTE | 2024-02-13 10:51 | W.PN.HOSP.TC ---
Today's Communication/Plan
-
Monitor vital signs
see plan
MRI brain pending
Now on room air
Continue with diet per speech
Assessment / Plan
Assessment / Plan
A/P: Patient is a 69y M with PMH significant for paroxysmal atrial fibrillation (not on oral anticoagulation due to low platelet count), metastatic lung cancer who presents to ED complaining of recent cough, fatigue, confusion, found to be covid
+.
CXR
IMPRESSION:
Mild left perihilar pneumonia and small left pleural effusion.
HEAD CT
IMPRESSION:
No acute intracranial hemorrhage.
Edema associated with known metastatic lesion along the posterior medial margin of the right temporal lobe has improved.
No other significant interval change.
General: Appears Chronically Ill
HEENT: PERRLA
Respiratory: Clear to Auscultation; Negative Wheezes
Cardiac: S1/S2
GI: Soft and Nontender
Musculoskeletal: No Edema
Skin: Warm; Negative Rash
Neuro: Awake and Alert
Psych: Confused
Covid-19 with concern for superimposed bacterial infection
TME 2/2 above
Aspiration Pneumonia, Aspiration risk
Hypoxic Respiratory Insufficiency
- CXR shows L sided opacity and small L effusion.
- symptoms started 10 days prior to arrival, now on room air
- continue VICE PRESIDENT NETWORK DEVELOPMENT Decadron
- continue antibiotics (S/p LEvaquin in ER, now receiving Cef/Doxy (does not require cover of anaerobes for aspiration pneumonia)
- wean O2 as able, now on room air
Concern for aspiration pneumonia, dysphagia
- he's been seen by ST in past and NPO recommended but patient and accepted aspiration risks. re-evaluated and recommendations are for NPO. Difficulty situation as patient remains full code. I spoke to and patient and again this
morning about need to discuss GOC if he wants to eat with aspiration risk. Status post VSE 02/11. Now on pur�ed diet with moderately thick liquid. Per Dr. Lane, unclear if patient can cooperate for further treatment with radiation
oncology for goals of care discussion
Paroxysmal atrial fibrillation
Paroxysmal atrial flutter
-Back in sinus, known baseline bradycardia without AV vaishali agent
-[id number]-LADe score at least 1, risks outweigh benefits of AC given brain metastasis and thrombocytopenia
- appreciate cardiology
Stage IV NSCLC
- states not currently on any active therapy.
- seen in ER on 01/30 with finding of: ' interval increase in metastatic lesion and associated edema in the right temporal and occipital region, with edema also extending into the region of the posterior right lentiform nucleus, posterior limb of
the right internal capsule, right thalamus and right midbrain' - admission offered but declined at that time and patient discharged on steroids with close follow up
- continue Decadron
- appreciate Oncology (see above)
- Continue Keppra for seizure prophylaxis.
- continue goals of care discussions
MRI brain ordered by oncology, pending
Anxiety
- Continue HS trazodone and PRN lorazepam as needed for acute anxiety.
Thrombocytopenia
- Chronic / appears stable.
- No evidence of active bleeding.
- Follow for changes in cell counts, etc.
Hypothyroidism
- Continue current T4 supplementation.
DVT Prophylaxis: SCDs
Code Status: Full
Anticipated Discharge: Within 24 hours
Subjective/Interval History
-
Date of Service: February 13, 2024
Denies pain
Objective Data
-
Labs:
Laboratory Results
02/13/24
05:15
WBC 7.5
Hgb 13.9 D
Hct 40.5
Plt Count 46 L
Sodium 140
Potassium 3.9
Chloride 108 H
Carbon Dioxide 27
BUN 20
Creatinine 0.4 L
Glucose 123 H
Calcium 8.9
Vital Signs:
Vital Signs
Temp Pulse Resp BP Pulse Ox
96.9 F L 96 22 128/74 95
02/13/24 08:30 02/13/24 08:30 02/13/24 08:30 02/13/24 08:30 02/13/24 08:30
I&O
02/12/24 02/13/24 02/14/24
06:59 06:59 06:59
Intake Total 120 / 120 1200 / 1200
Output Total /
Balance 120 / 120 1197 / 1197
[2024-02-13 11:30] VITALS: BP 125/76
[2024-02-13] MEDS: TESSALON PERLES 100 MG PO (12:15)
--- NOTE | 2024-02-13 12:43 | PN.CDI ---
CDI
- -
CDI:
Physician Documentation Request
Admit Date: 02/09/24 22:07
Dear Doctor Cornell,
Patient admitted and found to be positive for COVID.
Hospitalist progress notes include a diagnosis of aspiration pneumonia.
Oncology progress notes state 'covid pneumonia'
Could you please clarify the type of pneumonia you are treating (recognizing the specific organism may not be known)?
Aspiration Pneumonia
COVID pneumonia
Multifactorial -- please specify
Other type
Use of terms such as suspected, likely, concern for, or probable (associated with a specific diagnosis that is being evaluated, monitored, or treated as if it exists) are acceptable and can be coded in the inpatient setting, when documented at the
time of discharge.
Thank you,
Janina Bejarano RN, BSN
CDI Specialist
tiger text
Please use your independent medical judgment in providing your response.
--- NOTE | 2024-02-13 13:47 | CM ---
RA, MRI brain pending, video swallow on 02/12/24 showed moderate to severe impairment, recommendation for dysphagia I puree and honey thick liquids, aspiration risk. Discharge Plan of Care: Home with [facility], PT/OT services.
[2024-02-13] MEDS: TYLENOL 650 MG PO (14:57)
[2024-02-13] MEDS: ATIVAN 0.5 MG PO (14:57)
[2024-02-13 15:09] VITALS: BP 141/80
[2024-02-13] MEDS: DECADRON PO (18:09)
[2024-02-13] MEDS: LIPITOR PO (18:09)
[2024-02-13 19:56] VITALS: BP 130/86; BP 142/88; PULSE 57; PULSE 95
[2024-02-13] MEDS: STERILE WATER FOR INJECTION 10 ML IV (20:45)
[2024-02-13] MEDS: ROCEPHIN 1000 MG IV (20:45)
[2024-02-13] MEDS: DESYREL 50 MG PO (21:50)
[2024-02-13] MEDS: PROTONIX 40 MG PO (21:50)
[2024-02-13 23:00] VITALS: BP 142/73
[2024-02-14] VITALS (11 sets, daily range): BP systolic 93–142; BP diastolic 53–87; PULSE 103–180; O2SAT 93–94
[2024-02-14] MEDS: SYNTHROID 50 MCG PO (05:04)
[2024-02-14 06:33] LABS: % Immature Granulocytes 0.4 % (0-0.5); % Lymphocytes 3.7 % (20.5-51.1); % Monocytes 6.8 % (1.7-9.3); % Neutrophils 89.1 % (42.2-75.2); Absolute Lymphocytes 0.2 10^3/uL (1.2-3.4); Absolute Monocytes 0.3 10^3/uL (0.1-0.6); Absolute Neutrophils 4.3 10^3/uL (1.4-6.5); Hematocrit 36.3 % (39.0-52.0); Hemoglobin 12.5 g/dL (13.0-18.0); Mean Corp Hgb Conc. 34.4 g/dL (33.0-37.0); Mean Corpuscular Hgb 33.6 pg (27.0-31.0); Mean Corpuscular Volume 97.6 fL (80.0-94.0); Mean Platelet Volume 11.8 fL (7.4-10.4); Nucleated Red Blood Cells % 0 % (-); Platelet Count 40 10^3/uL (130-400); Red Blood Cell Count 3.72 10^6/uL (4.70-6.10); Red Cell Dist. Width 17.2 % (11.5-14.5); White Blood Cell Count 4.9 10^3/uL (4.8-10.8)
[2024-02-14 06:47] LABS: Blood Urea Nitrogen 22 mg/dl (9-20); Calcium 8.8 mg/dl (8.4-10.2); Carbon Dioxide 29 mmol/L (22-30); Chloride 109 mmol/L (98-107); Estimated Creatinine Clearance 93 ml/min; Glucose 98 mg/dl (70-99); Potassium 3.8 mmol/L (3.5-5.1); Sodium 138 mmol/L (135-145); eGFR > 60.00
--- NOTE | 2024-02-14 07:04 | W.PN.ONC2 ---
Today's Communication / Plan
-
Awaiting [facility] radiation video conference regarding possible gamma knife Tx for recurrent WOODEN FENCE ERECTOR solitary met.
Remains full code for now.
Impression
Impression
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
Recurrent WOODEN FENCE ERECTOR mets
COVID-19
Pneumonia
Change in mental status
Plan
Plan
MRI resulted. Await [facility] radiation video conference to ascertain if he can receive gamma knife therapy to site of recurrent brain lesion (prior SBRT in similar region) as he remains a poor surgical candidate.
They wish to speak with Dr Lujan as to next steps.
also concerned about how they will be able to transport him down to [place] as weak as he is.
Subjective/Objective
Chief Complaint
ACS Heme Onc
Subjective
Remains very weak (PS = 4) and confused. Bedfast.
Vital Signs:
Vital Signs
Temp Pulse Resp BP Pulse Ox
97 F 68 14 131/87 99
02/14/24 03:47 02/14/24 03:47 02/14/24 03:47 02/14/24 03:47 02/14/24 03:47
Lab Results:
Laboratory Data
WBC 4.9 10^3/uL (4.8-10.8) 02/14/24 05:17
Hgb 12.5 g/dL (13.0-18.0) L 02/14/24 05:17
Plt Count 40 10^3/uL (130-400) L 02/14/24 05:17
eGFR > 60.00 02/14/24 05:17
IMPRESSION:
1. 2.7 cm MALIGNANT INTRA-AXIAL MASS in the posteromedial right temporal lobe and posterior right thalamus surrounded by moderate vasogenic edema consistent with a SOLITARY BRAIN METASTASIS.
2. No MRI evidence for new intracranial metastatic disease.
3. Moderate diffuse cerebral and cerebellar volume loss.
4. Mild white matter leukoaraiosis in the frontal and parietal lobes.
Electronically signed by Roberto Marshall MD, 02/13/2024 6:28 PM
Physical Exam
chronically ill appearing
HEENT: Other (cachexia)
Pulmonary: Rhonchi
[2024-02-14] MEDS: VIBRAMYCIN 260 MG IV ×2 (08:37→20:59)
[2024-02-14] MEDS: MS CONTIN (EXTENDED RELEASE) 15 MG PO ×2 (08:37→20:59)
[2024-02-14] MEDS: KEPPRA 500 MG PO ×2 (08:37→21:00)
[2024-02-14] MEDS: DECADRON 4 MG PO ×3 (08:37→21:04)
--- NOTE | 2024-02-14 11:35 | W.PN.HOSP.TC ---
Today's Communication/Plan
-
Monitor vital signs see plan
Continue abx
cw decadron
pt/ot
cw current diet
oncology to decide regarding next management; goals of care ongoing with Oncology
Discussed with spouse at bedside
Assessment / Plan
Assessment / Plan
A/P: Patient is a 69y M with PMH significant for paroxysmal atrial fibrillation (not on oral anticoagulation due to low platelet count), metastatic lung cancer who presents to ED complaining of recent cough, fatigue, confusion, found to be covid
+.
CXR
IMPRESSION:
Mild left perihilar pneumonia and small left pleural effusion.
HEAD CT
IMPRESSION:
No acute intracranial hemorrhage.
Edema associated with known metastatic lesion along the posterior medial margin of the right temporal lobe has improved.
No other significant interval change.
General: Appears Chronically Ill
HEENT: PERRLA
Respiratory: Clear to Auscultation; Negative Wheezes
Cardiac: S1/S2
GI: Soft and Nontender
Musculoskeletal: No Edema
Skin: Warm; Negative Rash
Neuro: Awake and Alert
Psych: Confused
Covid-19 with concern for superimposed bacterial infection
TME 2/2 above
Aspiration Pneumonia, Aspiration risk
Do not suspect this was COVID-pneumonia
Hypoxic Respiratory Insufficiency
- CXR shows L sided opacity and small L effusion.
- symptoms started 10 days prior to arrival, now on room air
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
- continue antibiotics (S/p LEvaquin in ER, now receiving Cef/Doxy (does not require cover of anaerobes for aspiration pneumonia)
- wean O2 as able, now on room air
Concern for aspiration pneumonia, dysphagia
- he's been seen by ST in past and NPO recommended but patient and accepted aspiration risks. re-evaluated and recommendations are for NPO. Difficulty situation as patient remains full code. I spoke to and patient and again this
morning about need to discuss GOC if he wants to eat with aspiration risk. Status post VSE 02/11. Now on pur�ed diet with moderately thick liquid. Per Dr. Lane, unclear if patient can cooperate for further treatment with radiation
oncology for goals of care discussion
Paroxysmal atrial fibrillation
Paroxysmal atrial flutter
-Back in sinus, known baseline bradycardia without AV vaishali agent
-[id number]-WHCm score at least 1, risks outweigh benefits of AC given brain metastasis and thrombocytopenia
- appreciate cardiology
Stage IV NSCLC
- states not currently on any active therapy.
- seen in ER on 01/30 with finding of: ' interval increase in metastatic lesion and associated edema in the right temporal and occipital region, with edema also extending into the region of the posterior right lentiform nucleus, posterior limb of
the right internal capsule, right thalamus and right midbrain' - admission offered but declined at that time and patient discharged on steroids with close follow up
- continue Decadron
- appreciate Oncology (see above)
- Continue Keppra for seizure prophylaxis.
- continue goals of care discussions
MRI brain 02/12 with 2.7 cm MALIGNANT INTRA-AXIAL MASS in the posteromedial right temporal lobe and posterior right thalamus surrounded by moderate vasogenic edema consistent with a SOLITARY BRAIN METASTASIS. already on decadron. Oncology will be
discussing with [facility] radiation for possible treatment.
Anxiety
- Continue HS trazodone and PRN lorazepam as needed for acute anxiety.
Thrombocytopenia
- Chronic / appears stable.
- No evidence of active bleeding.
- Follow for changes in cell counts, etc.
Hypothyroidism
- Continue current T4 supplementation.
DVT Prophylaxis: SCDs
Code Status: Full
Been discussing CODE STATUS with patient and spouse. Currently want full code
Anticipated Discharge: Within 24 hours
Subjective/Interval History
-
Date of Service: February 14, 2024
denies nausea
Objective Data
-
Labs:
Laboratory Results
02/14/24
05:17
WBC 4.9
Hgb 12.5 L
Hct 36.3 L
Plt Count 40 L
Sodium 138
Potassium 3.8
Chloride 109 H
Carbon Dioxide 29
BUN 22 H
Creatinine 0.4 L
Glucose 98
Calcium 8.8
Vital Signs:
Vital Signs
Temp Pulse Resp BP Pulse Ox
97.3 F 49 18 129/70 93
02/14/24 07:05 02/14/24 07:05 02/14/24 07:05 02/14/24 07:05 02/14/24 07:05
I&O
02/13/24 02/14/24 02/15/24
06:59 06:59 06:59
Intake Total 1200 / 1200 420 / 420
Output Total 3 / 3
Balance 1197 / 1197 420 / 420
--- NOTE | 2024-02-14 12:22 | CM ---
CM following re: discharge planning.
Reviewed pt's chart, met with pt and pt's spouse Birdie at bedside.
PT and OT continue to recommend home PT/OT. Both pt and his spouse are aware, expressed their agreement and they stated that pt is known to [facility]. Pt's spouse stated she will transport pt home at discharge.
A referral to [facility] noted and per [facility] staff, pt is accepted for VN services upon the discharge.
IMM reviewed, placed on chart, pt has a copy.
Please fax discharge instructions to [facility] at [phone]
D/C plan: home with [facility] and family support. Spouse to transport at discharge.
CM will follow with discharge plan updates as needed.
[2024-02-14] MEDS: LOPRESSOR 2.5 MG IV ×2 (14:25→19:11)
[2024-02-14] MEDS: KCL 20 MEQ PO (14:26)
[2024-02-14 15:14] LABS: Magnesium 1.8 mg/dl (1.6-2.3)
[2024-02-14] MEDS: LIPITOR 40 MG PO (17:20)
[2024-02-14] MEDS: STERILE WATER FOR INJECTION 10 ML IV (21:01)
[2024-02-14] MEDS: ROCEPHIN 1000 MG IV (21:01)
[2024-02-14] MEDS: PROTONIX 40 MG PO (21:03)
[2024-02-14] MEDS: DESYREL 50 MG PO (21:04)
[2024-02-14] MEDS: ATIVAN 0.25 MG PO (21:28)
[2024-02-15] VITALS (7 sets, daily range): BP systolic 105–176; BP diastolic 02–87; PULSE 70–105
[2024-02-15] MEDS: NSS 1000 IV (00:51)
[2024-02-15] MEDS: SYNTHROID 50 MCG PO (06:27)
[2024-02-15] MEDS: DULCOLAX 10 MG RECTAL (07:33)
[2024-02-15 08:10] LABS: Blood Urea Nitrogen 24 mg/dl (9-20); Calcium 8.6 mg/dl (8.4-10.2); Carbon Dioxide 25 mmol/L (22-30); Chloride 112 mmol/L (98-107); Estimated Creatinine Clearance 93 ml/min; Glucose 102 mg/dl (70-99); Potassium 4.1 mmol/L (3.5-5.1); Sodium 140 mmol/L (135-145); eGFR > 60.00
[2024-02-15 09:06] LABS: % Basophils 0.1 % (0-2); % Immature Granulocytes 0.5 % (0-0.5); % Lymphocytes 5.2 % (20.5-51.1); % Monocytes 5.1 % (1.7-9.3); % Neutrophils 89.1 % (42.2-75.2); Absolute Lymphocytes 0.4 10^3/uL (1.2-3.4); Absolute Monocytes 0.4 10^3/uL (0.1-0.6); Mean Corp Hgb Conc. 34.2 g/dL (33.0-37.0); Mean Corpuscular Hgb 33.3 pg (27.0-31.0); Mean Corpuscular Volume 97.4 fL (80.0-94.0); Mean Platelet Volume 13.4 fL (7.4-10.4); Nucleated Red Blood Cells % 0 % (-); Platelet Count 42 10^3/uL (130-400); Red Cell Dist. Width 17.6 % (11.5-14.5); White Blood Cell Count 7.9 10^3/uL (4.8-10.8)
[2024-02-15] MEDS: MS CONTIN (EXTENDED RELEASE) 15 MG PO ×2 (09:16→20:51)
[2024-02-15] MEDS: KEPPRA 500 MG PO ×2 (09:16→20:51)
[2024-02-15] MEDS: DECADRON 4 MG PO ×3 (09:16→22:17)
[2024-02-15] MEDS: VIBRAMYCIN 260 MG IV ×2 (09:17→20:52)
[2024-02-15] MEDS: ATIVAN 0.25 MG PO ×2 (09:26→22:17)
--- NOTE | 2024-02-15 10:07 | W.PN.ONC ---
Today's Communication / Plan
-
Will ask neurosurgery to evaluate his potential candidacy as he has a solitary lesion
Given its deep location and his current performance status it is very likely that his only option is gamma knife
Patient and are somewhat reluctant to consider traveling for gamma knife
His performance status has been borderline since the time of his diagnosis
He has not had systemic therapy in months and received 2 doses of Taxotere more than a year ago no measurable systemic disease CT C/A/P
Encouraged to make an appointment as P has reached out to her
Impression
Impression
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
Recurrent solitary frontal lobe metastasis
COVID-19
Pneumonia
Change in mental status
Subjective/Objective
Subjective/Objective
Patient with episodes of tachycardia last evening. He continues to have episodes of barium. MRI reviewed
Vital Signs:
Vital Signs
Temp Pulse Resp BP Pulse Ox
97.6 F 70 18 147/87 95
02/15/24 07:55 02/15/24 07:55 02/15/24 07:55 02/15/24 07:55 02/15/24 07:55
Heart regular
Lungs tubular rhonchi particularly in the left base
Extremities without pretibial edema
Neuro nonfocal but with episodes of confusion
Lab Results:
Laboratory Data
WBC 7.9 10^3/uL (4.8-10.8) 02/15/24 06:15
Hgb 13.0 g/dL (13.0-18.0) 02/15/24 06:15
Plt Count 42 10^3/uL (130-400) L 02/15/24 06:15
eGFR > 60.00 02/15/24 06:14
--- NOTE | 2024-02-15 11:26 | W.PN.HOSP.TC ---
Today's Communication/Plan
-
Monitor vital signs
see plan
Add Lopressor
Laxatives, if does not improve then will need enema
PT/OT
Oncology to discuss options for his malignancy
Discussed with spouse at bedside
Assessment / Plan
Assessment / Plan
A/P: Patient is a 69y M with PMH significant for paroxysmal atrial fibrillation (not on oral anticoagulation due to low platelet count), metastatic lung cancer who presents to ED complaining of recent cough, fatigue, confusion, found to be covid
+.
CXR
IMPRESSION:
Mild left perihilar pneumonia and small left pleural effusion.
HEAD CT
IMPRESSION:
No acute intracranial hemorrhage.
Edema associated with known metastatic lesion along the posterior medial margin of the right temporal lobe has improved.
No other significant interval change.
General: Appears Chronically Ill
HEENT: PERRLA
Respiratory: Clear to Auscultation; Negative Wheezes
Cardiac: S1/S2
GI: Soft and Nontender
Musculoskeletal: No Edema
Skin: Warm; Negative Rash
Neuro: Awake and Alert
Psych: Confused
Covid-19 with concern for superimposed bacterial infection
TME 2/2 above
Aspiration Pneumonia, Aspiration risk
Do not suspect this was COVID-pneumonia
Hypoxic Respiratory Insufficiency
- CXR shows L sided opacity and small L effusion.
- symptoms started 10 days prior to arrival, now on room air
- continue BILLING CONTROL CLERK Decadron
- continue antibiotics (S/p LEvaquin in ER, now receiving Cef/Doxy (does not require cover of anaerobes for aspiration pneumonia)
- wean O2 as able, now on room air
Concern for aspiration pneumonia, dysphagia
- he's been seen by ST in past and NPO recommended but patient and accepted aspiration risks. re-evaluated and recommendations are for NPO. Difficulty situation as patient remains full code. I spoke to and patient and again this
morning about need to discuss GOC if he wants to eat with aspiration risk. Status post VSE 02/11. Now on pur�ed diet with moderately thick liquid. Per Dr. Lane, unclear if patient can cooperate for further treatment with radiation
oncology for goals of care discussion
Paroxysmal atrial fibrillation
Paroxysmal atrial flutter
Going in and out of A-fib/a flutter; added Lopressor
-[id number] score at least 1, risks outweigh benefits of AC given brain metastasis and thrombocytopenia
cardiology signed off
Constipation
Laxatives, suppository. If still not successful then will need enema
Stage IV NSCLC
- states not currently on any active therapy.
- seen in ER on 01/30 with finding of: ' interval increase in metastatic lesion and associated edema in the right temporal and occipital region, with edema also extending into the region of the posterior right lentiform nucleus, posterior limb of
the right internal capsule, right thalamus and right midbrain' - admission offered but declined at that time and patient discharged on steroids with close follow up
- continue Decadron
- appreciate Oncology (see above)
- Continue Keppra for seizure prophylaxis.
- continue goals of care discussions
MRI brain 02/12 with 2.7 cm MALIGNANT INTRA-AXIAL MASS in the posteromedial right temporal lobe and posterior right thalamus surrounded by moderate vasogenic edema consistent with a SOLITARY BRAIN METASTASIS. already on decadron. Oncology will be
discussing with [facility] radiation for possible treatment. oncology will be asking neurosurgery to evaluate patient's potential candidacy as he has solitary lesion.
Anxiety
- Continue HS trazodone and PRN lorazepam as needed for acute anxiety.
Thrombocytopenia
- Chronic / appears stable.
- No evidence of active bleeding.
- Follow for changes in cell counts, etc.
Hypothyroidism
- Continue current T4 supplementation.
DVT Prophylaxis: SCDs
Code Status: Full
Been discussing CODE STATUS with patient and spouse. Currently want full code
I spent a total of 52 minutes with the patient or on the floor. More than 50% of this time involved counseling and coordination of care.
Anticipated Discharge: Within 24 hours
Subjective/Interval History
-
Date of Service: February 15, 2024
denies pain
Objective Data
-
Labs:
Laboratory Results
02/15/24 02/15/24
06:14 06:15
WBC 7.9
Hgb 13.0
Hct 38.0 L
Plt Count 42 L
Sodium 140
Potassium 4.1
Chloride 112 H
Carbon Dioxide 25
BUN 24 H
Creatinine 0.5 L
Glucose 102 H
Calcium 8.6
Vital Signs:
Vital Signs
Temp Pulse Resp BP Pulse Ox
97.6 F 70 18 147/87 95
02/15/24 07:55 02/15/24 07:55 02/15/24 07:55 02/15/24 07:55 02/15/24 07:55
I&O
02/14/24 02/15/24 02/16/24
06:59 06:59 06:59
Intake Total 420 / 420 1560 / 1560
Output Total 950 / 950
Balance 420 / 420 610 / 610
[2024-02-15] MEDS: LOPRESSOR 12.5 MG PO (11:28)
[2024-02-15] MEDS: MIRALAX 17 GRAMS PO (11:29)
[2024-02-15] MEDS: COLACE 100 MG PO ×2 (11:29→20:51)
--- NOTE | 2024-02-15 14:42 | W.PN.UPDATE ---
Update Note
Progress Note Update
Asked to see patient regarding possible surgery for right fronto/temporal lesion. Patient known to our service with this lesion being diagnosed about a year ago. At that time he refused surgery or biopsy and underwent XRT. Essentially has been lost
to follow-up from neurosurgery. He represented to the hospital 02/09/2024 and was ultimately diagnosed with COVID. CT of the head was obtained and ultimately a new MRI of the brain was obtained.
His MRI of his brain shows significant decrease in size of the metastatic lesion that was seen 1 year ago. However looking at CAT scans there has been slow increase in growth since at least July 2023.
Currently there are no surgical recommendations
1. Recommend stereotactic radiosurgery if necessary
2. Neurosurgery will sign off
--- NOTE | 2024-02-15 14:48 | CM ---
Onc and Neuro determining care for frontal lobe mets. Discharge Plan of Care remains: Home with [facility], PT/OT services. Violet is contact @ [phone].
[2024-02-15] MEDS: LIPITOR 40 MG PO (17:58)
[2024-02-15] MEDS: LOPRESSOR PO (20:51)
[2024-02-15] MEDS: STERILE WATER FOR INJECTION 10 ML IV (20:51)
[2024-02-15] MEDS: ROCEPHIN 1000 MG IV (20:52)
[2024-02-15] MEDS: PROTONIX 40 MG PO (22:17)
[2024-02-15] MEDS: DESYREL 50 MG PO (22:17)
[2024-02-16 03:30] VITALS: BP 106/74
[2024-02-16] MEDS: SYNTHROID 50 MCG PO (05:27)
[2024-02-16 05:38] LABS: % Basophils 0.1 % (0-2); % Immature Granulocytes 0.5 % (0-0.5); % Monocytes 3.7 % (1.7-9.3); % Neutrophils 92.7 % (42.2-75.2); Absolute Lymphocytes 0.2 10^3/uL (1.2-3.4); Absolute Monocytes 0.3 10^3/uL (0.1-0.6); Absolute Neutrophils 6.8 10^3/uL (1.4-6.5); Hematocrit 35.1 % (39.0-52.0); Hemoglobin 12.2 g/dL (13.0-18.0); Mean Corp Hgb Conc. 34.8 g/dL (33.0-37.0); Mean Corpuscular Hgb 33.3 pg (27.0-31.0); Mean Corpuscular Volume 95.9 fL (80.0-94.0); Nucleated Red Blood Cells % 0 % (-); Platelet Count 33 10^3/uL (130-400); Red Blood Cell Count 3.66 10^6/uL (4.70-6.10); Red Cell Dist. Width 17.5 % (11.5-14.5); White Blood Cell Count 7.3 10^3/uL (4.8-10.8)
[2024-02-16 06:21] LABS: Blood Urea Nitrogen 27 mg/dl (9-20); Calcium 8.5 mg/dl (8.4-10.2); Carbon Dioxide 27 mmol/L (22-30); Chloride 113 mmol/L (98-107); Estimated Creatinine Clearance 93 ml/min; Glucose 100 mg/dl (70-99); Sodium 139 mmol/L (135-145); eGFR > 60.00
[2024-02-16 07:05] VITALS: BP 124/69
[2024-02-16] MEDS: COLACE 100 MG PO ×2 (08:51→19:58)
[2024-02-16] MEDS: DECADRON 4 MG PO ×3 (08:54→22:23)
[2024-02-16] MEDS: LOPRESSOR 12.5 MG PO ×2 (08:54→19:56)
[2024-02-16] MEDS: KEPPRA 500 MG PO ×2 (08:54→19:57)
[2024-02-16] MEDS: ATIVAN 0.25 MG PO (08:55)
[2024-02-16] MEDS: MIRALAX 17 GRAMS PO (08:55)
[2024-02-16] MEDS: VIBRAMYCIN 260 MG IV ×2 (08:55→19:59)
[2024-02-16] MEDS: MS CONTIN (EXTENDED RELEASE) 15 MG PO ×2 (08:55→19:57)
[2024-02-16 11:00] VITALS: BP 117/74
--- NOTE | 2024-02-16 11:23 | W.PN.HOSP.TC ---
Today's Communication/Plan
-
Monitor vital signs see plan
Prognosis guarded, oncology to discuss today
Spouse updated over the phone
Last day of antibiotics tomorrow
cw metoprolol
Assessment / Plan
Assessment / Plan
A/P: Patient is a 69y M with PMH significant for paroxysmal atrial fibrillation (not on oral anticoagulation due to low platelet count), metastatic lung cancer who presents to ED complaining of recent cough, fatigue, confusion, found to be covid
+.
CXR
IMPRESSION:
Mild left perihilar pneumonia and small left pleural effusion.
HEAD CT
IMPRESSION:
No acute intracranial hemorrhage.
Edema associated with known metastatic lesion along the posterior medial margin of the right temporal lobe has improved.
No other significant interval change.
General: Appears Chronically Ill
HEENT: PERRLA
Respiratory: Clear to Auscultation; Negative Wheezes
Cardiac: S1/S2
GI: Soft and Nontender
Musculoskeletal: No Edema
Skin: Warm; Negative Rash
Neuro: Awake and Alert
Psych: Confused
Covid-19 with concern for superimposed bacterial infection
TME 2/2 above
Aspiration Pneumonia, Aspiration risk
Do not suspect this was COVID-pneumonia
Hypoxic Respiratory Insufficiency
- CXR shows L sided opacity and small L effusion.
- symptoms started 10 days prior to arrival, now on room air
- continue DIRECTOR OF COMPLIANCE Decadron
- continue antibiotics (S/p LEvaquin in ER, now receiving Cef/Doxy (does not require cover of anaerobes for aspiration pneumonia); last day abx 02/16
- wean O2 as able, now on room air
Concern for aspiration pneumonia, dysphagia
- he's been seen by ST in past and NPO recommended but patient and accepted aspiration risks. re-evaluated and recommendations are for NPO. Difficulty situation as patient remains full code. I spoke to and patient and again this
morning about need to discuss GOC if he wants to eat with aspiration risk. Status post VSE 02/11. Now on pur�ed diet with moderately thick liquid. Per Dr. Lane, unclear if patient can cooperate for further treatment with radiation
oncology for goals of care discussion
Paroxysmal atrial fibrillation
Paroxysmal atrial flutter
Periods of tachybradycardia however bradycardia does not sustain
Going in and out of A-fib/a flutter; added Lopressor
-[id number] score at least 1, risks outweigh benefits of AC given brain metastasis and thrombocytopenia
cardiology signed off
Constipation
Laxatives, suppository. If still not successful then will need enema
Stage IV NSCLC
- states not currently on any active therapy.
- seen in ER on 01/30 with finding of: ' interval increase in metastatic lesion and associated edema in the right temporal and occipital region, with edema also extending into the region of the posterior right lentiform nucleus, posterior limb of
the right internal capsule, right thalamus and right midbrain' - admission offered but declined at that time and patient discharged on steroids with close follow up
- continue Decadron
- appreciate Oncology (see above)
- Continue Keppra for seizure prophylaxis.
- continue goals of care discussions
MRI brain 02/12 with 2.7 cm MALIGNANT INTRA-AXIAL MASS in the posteromedial right temporal lobe and posterior right thalamus surrounded by moderate vasogenic edema consistent with a SOLITARY BRAIN METASTASIS. already on decadron. Oncology will be
discussing with [facility] radiation for possible treatment. oncology will be asking neurosurgery to evaluate patient's potential candidacy as he has solitary lesion. neuro surgery signed off
Anxiety
- Continue HS trazodone and PRN lorazepam as needed for acute anxiety.
Thrombocytopenia
- No evidence of active bleeding.
- Follow for changes in cell counts, etc.
Hypothyroidism
- Continue current T4 supplementation.
DVT Prophylaxis: SCDs
Code Status: Full
Been discussing CODE STATUS with patient and spouse. Currently want full code
Discussed with spouse again 02/15 regarding hospice. Patient is currently very weak and lethargic and is unable to undergo any treatment. Oncology will speak to the family as well. Prognosis guarded
I spent a total of 53 minutes with the patient or on the floor. More than 50% of this time involved counseling and coordination of care.
Anticipated Discharge: Within 24 hours
Subjective/Interval History
-
Date of Service: February 16, 2024
denies pain
Objective Data
-
Labs:
Laboratory Results
02/16/24
05:14
WBC 7.3
Hgb 12.2 L
Hct 35.1 L
Plt Count 33 L D
Sodium 139
Potassium 4.0
Chloride 113 H
Carbon Dioxide 27
BUN 27 H
Creatinine 0.5 L
Glucose 100 H
Calcium 8.5
Vital Signs:
Vital Signs
Temp Pulse Resp BP Pulse Ox
97.3 F 114 18 129/69 96
02/16/24 07:05 02/16/24 08:54 02/16/24 07:05 02/16/24 08:54 02/16/24 07:05
I&O
02/15/24 02/16/24 02/17/24
06:59 06:59 06:59
Intake Total 1560 / 1560 240 / 240
Output Total 950 / 950
Balance 610 / 610 240 / 240
--- NOTE | 2024-02-16 15:00 | CM ---
Addendum entered by Azul Blanton 02/16/24 16:14:
Spoke with who requested to speak with Oncologist. Attending mentioned hospice and she wants additional information and options from Oncology before making a decision. TT to Oncologist.
Original Note:
Significant chandrika and tachy at intervals. Neuro signed off. Noted guarded prognosis. Discharge Plan of Care: Home with [facility], PT/OT services. Philomena at [facility] has been given update. Philomena # [phone].
[2024-02-16 15:40] VITALS: BP 108/78
[2024-02-16] MEDS: LIPITOR 40 MG PO (17:34)
[2024-02-16 19:26] VITALS: BP 113/89
[2024-02-16] MEDS: ROCEPHIN 1000 MG IV (19:58)
[2024-02-16] MEDS: STERILE WATER FOR INJECTION 10 ML IV (19:58)
[2024-02-16] MEDS: DESYREL 50 MG PO (22:23)
[2024-02-16] MEDS: PROTONIX 40 MG PO (22:23)
[2024-02-16 23:53] VITALS: BP 119/68
[2024-02-17 03:20] VITALS: BP 133/87
[2024-02-17 04:38] LABS: % Basophils 0.1 % (0-2); % Immature Granulocytes 0.5 % (0-0.5); % Lymphocytes 2.5 % (20.5-51.1); % Monocytes 4.3 % (1.7-9.3); % Neutrophils 92.6 % (42.2-75.2); Absolute Lymphocytes 0.2 10^3/uL (1.2-3.4); Absolute Monocytes 0.3 10^3/uL (0.1-0.6); Hematocrit 35.3 % (39.0-52.0); Hemoglobin 12.1 g/dL (13.0-18.0); Mean Corp Hgb Conc. 34.3 g/dL (33.0-37.0); Mean Corpuscular Hgb 33.2 pg (27.0-31.0); Mean Corpuscular Volume 96.7 fL (80.0-94.0); Nucleated Red Blood Cells % 0 % (-); Platelet Count 34 10^3/uL (130-400); Red Blood Cell Count 3.65 10^6/uL (4.70-6.10); Red Cell Dist. Width 17.7 % (11.5-14.5); White Blood Cell Count 7.5 10^3/uL (4.8-10.8)
[2024-02-17 04:56] LABS: Blood Urea Nitrogen 32 mg/dl (9-20); Calcium 8.7 mg/dl (8.4-10.2); Carbon Dioxide 27 mmol/L (22-30); Chloride 111 mmol/L (98-107); Estimated Creatinine Clearance 93 ml/min; Glucose 114 mg/dl (70-99); Potassium 4.2 mmol/L (3.5-5.1); Sodium 141 mmol/L (135-145); eGFR > 60.00
[2024-02-17] MEDS: SYNTHROID 50 MCG PO (05:28)
[2024-02-17 07:05] VITALS: BP 138/71
[2024-02-17] MEDS: KEPPRA 500 MG PO ×2 (08:20→21:22)
[2024-02-17] MEDS: COLACE PO ×2 (08:20→21:15)
[2024-02-17] MEDS: DECADRON 4 MG PO ×3 (08:20→21:24)
[2024-02-17] MEDS: MS CONTIN (EXTENDED RELEASE) 15 MG PO ×2 (08:20→21:22)
[2024-02-17] MEDS: LOPRESSOR PO ×2 (08:21→21:14)
[2024-02-17] MEDS: VIBRAMYCIN 260 MG IV (08:22)
[2024-02-17] MEDS: FLUSH (NSS) 2 FLUSH IV (08:23)
[2024-02-17] MEDS: TYLENOL 650 MG PO (08:26)
[2024-02-17] MEDS: TESSALON PERLES 100 MG PO (08:27)
[2024-02-17] MEDS: MIRALAX PO (08:40)
[2024-02-17 11:00] VITALS: BP 121/71
--- NOTE | 2024-02-17 11:27 | W.PN.HOSP.TC ---
Today's Communication/Plan
-
Monitor vitals
see plan
Discussed with patient and spouse at length, changed to DNR
Hospice consult
Finished antibiotics
Assessment / Plan
Assessment / Plan
A/P: Patient is a 69y M with PMH significant for paroxysmal atrial fibrillation (not on oral anticoagulation due to low platelet count), metastatic lung cancer who presents to ED complaining of recent cough, fatigue, confusion, found to be covid
+.
CXR
IMPRESSION:
Mild left perihilar pneumonia and small left pleural effusion.
HEAD CT
IMPRESSION:
No acute intracranial hemorrhage.
Edema associated with known metastatic lesion along the posterior medial margin of the right temporal lobe has improved.
No other significant interval change.
General: Appears Chronically Ill
HEENT: PERRLA
Respiratory: Clear to Auscultation; Negative Wheezes
Cardiac: S1/S2
GI: Soft and Nontender
Musculoskeletal: No Edema
Skin: Warm; Negative Rash
Neuro: Awake and Alert
Psych: Confused
Covid-19 with concern for superimposed bacterial infection
TME 2/2 above
Aspiration Pneumonia, Aspiration risk
Do not suspect this was COVID-pneumonia
Hypoxic Respiratory Insufficiency
- CXR shows L sided opacity and small L effusion.
- symptoms started 10 days prior to arrival, now on room air
- continue DRIVER SUPERVISOR Decadron
- continue antibiotics (S/p LEvaquin in ER, now receiving Cef/Doxy (does not require cover of anaerobes for aspiration pneumonia); finished abx
- wean O2 as able, now on room air
Concern for aspiration pneumonia, dysphagia
- he's been seen by ST in past and NPO recommended but patient and accepted aspiration risks. re-evaluated and recommendations are for NPO. Difficulty situation as patient remains full code. I spoke to and patient and again this
morning about need to discuss GOC if he wants to eat with aspiration risk. Status post VSE 8/12. Now on pur�ed diet with moderately thick liquid. Per Dr. Lane, unclear if patient can cooperate for further treatment with radiation
oncology for goals of care discussion; patient's spouse spoke with Dr. Lujan yesterday who also recommended hospice. If patient ever has enough strength for more treatment then radiation can be considered. Patient at this time declining
significantly and prognosis is guarded. Spoke with patient and spouse and change CODE STATUS to DNR. Hospice consulted
Paroxysmal atrial fibrillation
Paroxysmal atrial flutter
Periods of tachybradycardia however bradycardia does not sustain. does not think patient would want any pacemaker
Going in and out of A-fib/a flutter; added Lopressor
-[id number] score at least 1, risks outweigh benefits of AC given brain metastasis and thrombocytopenia
cardiology signed off
Constipation
Laxatives, suppository. If still not successful then will need enema
Stage IV NSCLC
- states not currently on any active therapy.
- seen in ER on 01/30 with finding of: ' interval increase in metastatic lesion and associated edema in the right temporal and occipital region, with edema also extending into the region of the posterior right lentiform nucleus, posterior limb of
the right internal capsule, right thalamus and right midbrain' - admission offered but declined at that time and patient discharged on steroids with close follow up
- continue Decadron
- appreciate Oncology (see above)
- Continue Keppra for seizure prophylaxis.
- continue goals of care discussions
MRI brain 02/12 with 2.7 cm MALIGNANT INTRA-AXIAL MASS in the posteromedial right temporal lobe and posterior right thalamus surrounded by moderate vasogenic edema consistent with a SOLITARY BRAIN METASTASIS. already on decadron. Oncology will be
discussing with [facility] radiation for possible treatment. oncology will be asking neurosurgery to evaluate patient's potential candidacy as he has solitary lesion. neuro surgery signed off
Patient at this time declining significantly and prognosis is guarded. Spoke with patient and spouse and change CODE STATUS to DNR. Hospice consulted
Anxiety
- Continue HS trazodone and PRN lorazepam as needed for acute anxiety.
Thrombocytopenia
- No evidence of active bleeding.
- Follow for changes in cell counts, etc.
Hypothyroidism
- Continue current T4 supplementation.
DVT Prophylaxis: SCDs
Code Status: DNR
Discussed with spouse again 02/15 regarding hospice. Patient is currently very weak and lethargic and is unable to undergo any treatment. Oncology will speak to the family as well. Prognosis guarded
02/16 Patient at this time declining significantly and prognosis is guarded. Spoke with patient and spouse and change CODE STATUS to DNR. Hospice consulted
I spent a total of 52 minutes with the patient or on the floor. More than 50% of this time involved counseling and coordination of care.
Anticipated Discharge: Within 24 hours
Subjective/Interval History
-
Date of Service: February 17, 2024
lethargic
Objective Data
-
Labs:
Laboratory Results
02/17/24
04:19
WBC 7.5
Hgb 12.1 L
Hct 35.3 L
Plt Count 34 L
Sodium 141
Potassium 4.2
Chloride 111 H
Carbon Dioxide 27
BUN 32 H
Creatinine 0.5 L
Glucose 114 H
Calcium 8.7
Vital Signs:
Vital Signs
Temp Pulse Resp BP Pulse Ox
97.3 F 48 14 138/71 94
02/17/24 07:05 02/17/24 08:21 02/17/24 07:05 02/17/24 07:05 02/17/24 07:05
I&O
02/16/24 02/17/24 02/18/24
06:59 06:59 06:59
Intake Total 240 / 240 400 / 400
Balance 240 / 240 400 / 400
--- NOTE | 2024-02-17 13:47 | HOSPNOTE ---
Referral received. Called and spoke to patients spouse. Reviewed hospice and the philosophy. Answered her questions. She is going to digest the information and think about her decision. She has my direct phone number to call. CM and Attending
updated. Hospice will continue to follow and be available.
[2024-02-17 15:05] VITALS: BP 142/76
[2024-02-17] MEDS: LIPITOR 40 MG PO (17:04)
[2024-02-17 19:11] VITALS: BP 121/65
[2024-02-17] MEDS: STERILE WATER FOR INJECTION IV (21:09)
[2024-02-17] MEDS: PROTONIX 40 MG PO (21:22)
[2024-02-17] MEDS: DESYREL 50 MG PO (21:22)
[2024-02-17] MEDS: LOPRESSOR 2.5 MG IV (22:27)
[2024-02-17] MEDS: ATIVAN 0.25 MG PO (22:37)
[2024-02-17 23:54] VITALS: BP 121/80
[2024-02-18 03:00] VITALS: BP 127/84
[2024-02-18] MEDS: SYNTHROID 50 MCG PO (06:14)
[2024-02-18 07:05] VITALS: BP 121/86
[2024-02-18 08:21] LABS: % Basophils 0.1 % (0-2); % Immature Granulocytes 0.4 % (0-0.5); % Lymphocytes 3.8 % (20.5-51.1); % Monocytes 5.2 % (1.7-9.3); % Neutrophils 90.5 % (42.2-75.2); Absolute Lymphocytes 0.3 10^3/uL (1.2-3.4); Absolute Monocytes 0.4 10^3/uL (0.1-0.6); Absolute Neutrophils 6.4 10^3/uL (1.4-6.5); Blood Urea Nitrogen 31 mg/dl (9-20); Calcium 8.8 mg/dl (8.4-10.2); Carbon Dioxide 26 mmol/L (22-30); Chloride 112 mmol/L (98-107); Estimated Creatinine Clearance 93 ml/min; Glucose 107 mg/dl (70-99); Hematocrit 37.6 % (39.0-52.0); Hemoglobin 12.8 g/dL (13.0-18.0); Mean Corpuscular Hgb 33.3 pg (27.0-31.0); Mean Corpuscular Volume 97.9 fL (80.0-94.0); Mean Platelet Volume 12.9 fL (7.4-10.4); Nucleated Red Blood Cells % 0 % (-); Platelet Count 42 10^3/uL (130-400); Potassium 4.2 mmol/L (3.5-5.1); Red Blood Cell Count 3.84 10^6/uL (4.70-6.10); Red Cell Dist. Width 17.8 % (11.5-14.5); Sodium 142 mmol/L (135-145); White Blood Cell Count 7.1 10^3/uL (4.8-10.8); eGFR > 60.00
[2024-02-18] MEDS: LOPRESSOR 12.5 MG PO (08:51)
[2024-02-18] MEDS: COLACE PO ×2 (08:52→22:28)
[2024-02-18] MEDS: MIRALAX PO (08:52)
[2024-02-18] MEDS: TYLENOL 650 MG PO ×2 (08:52→22:29)
[2024-02-18] MEDS: KEPPRA 500 MG PO ×2 (08:52→20:36)
[2024-02-18] MEDS: MS CONTIN (EXTENDED RELEASE) 15 MG PO ×2 (08:52→20:36)
[2024-02-18] MEDS: DECADRON 4 MG PO ×3 (08:52→22:29)
--- NOTE | 2024-02-18 09:30 | PTCARENOTE ---
Pt sat oob in chair for est 2hr this am. He pushed himself of from the bed and side stepped to chair with min assist.
--- NOTE | 2024-02-18 10:30 | W.PN.HOSP.TC ---
Today's Communication/Plan
-
Monitor vital signs see plan
manager intern for assistance
Poor prognosis, progressively getting worse
DNR
Spouse updated at bedside
Assessment / Plan
Assessment / Plan
A/P: Patient is a 69y M with PMH significant for paroxysmal atrial fibrillation (not on oral anticoagulation due to low platelet count), metastatic lung cancer who presents to ED complaining of recent cough, fatigue, confusion, found to be covid
+.
CXR
IMPRESSION:
Mild left perihilar pneumonia and small left pleural effusion.
HEAD CT
IMPRESSION:
No acute intracranial hemorrhage.
Edema associated with known metastatic lesion along the posterior medial margin of the right temporal lobe has improved.
No other significant interval change.
General: Appears Chronically Ill
HEENT: PERRLA
Respiratory: Clear to Auscultation; Negative Wheezes
Cardiac: S1/S2
GI: Soft and Nontender
Musculoskeletal: No Edema
Skin: Warm; Negative Rash
Neuro: Awake and Alert
Psych: Confused
Covid-19 with concern for superimposed bacterial infection
TME 2/2 above
Aspiration Pneumonia, Aspiration risk
Do not suspect this was COVID-pneumonia
Hypoxic Respiratory Insufficiency
- CXR shows L sided opacity and small L effusion.
- symptoms started 10 days prior to arrival, now on room air
- continue BIRD TENDER Decadron
- continue antibiotics (S/p LEvaquin in ER, now receiving Cef/Doxy (does not require cover of anaerobes for aspiration pneumonia); finished abx
- wean O2 as able, now on room air
Concern for aspiration pneumonia, dysphagia
- he's been seen by ST in past and NPO recommended but patient and accepted aspiration risks. re-evaluated and recommendations are for NPO. Difficulty situation as patient remains full code. I spoke to and patient and again this
morning about need to discuss GOC if he wants to eat with aspiration risk. Status post VSE 8/12. Now on pur�ed diet with moderately thick liquid. Per Dr. Lane, unclear if patient can cooperate for further treatment with radiation
oncology for goals of care discussion; patient's spouse spoke with Dr. Lujan yesterday who also recommended hospice. If patient ever has enough strength for more treatment then radiation can be considered. Patient at this time declining
significantly and prognosis is guarded. Spoke with patient and spouse and change CODE STATUS to DNR. Hospice evaluated. Spouse main problem is if she can take care of the patient at home. Patient is progressively declining. Asked case resolution specialist
to see if can have any assistance. Discussed with linoleum printer that they will be visiting twice weekly.
Paroxysmal atrial fibrillation
Paroxysmal atrial flutter
Periods of tachybradycardia however bradycardia does not sustain. does not think patient would want any pacemaker
Going in and out of A-fib/a flutter; added Lopressor
-[id number] score at least 1, risks outweigh benefits of AC given brain metastasis and thrombocytopenia
cardiology signed off
Constipation
Laxatives, suppository. now with BM's
Stage IV NSCLC
- states not currently on any active therapy.
- seen in ER on 01/30 with finding of: ' interval increase in metastatic lesion and associated edema in the right temporal and occipital region, with edema also extending into the region of the posterior right lentiform nucleus, posterior limb of
the right internal capsule, right thalamus and right midbrain' - admission offered but declined at that time and patient discharged on steroids with close follow up
- continue Decadron
- appreciate Oncology (see above)
- Continue Keppra for seizure prophylaxis.
- continue goals of care discussions
MRI brain 02/12 with 2.7 cm MALIGNANT INTRA-AXIAL MASS in the posteromedial right temporal lobe and posterior right thalamus surrounded by moderate vasogenic edema consistent with a SOLITARY BRAIN METASTASIS. already on decadron. Oncology will be
discussing with [facility] radiation for possible treatment. oncology will be asking neurosurgery to evaluate patient's potential candidacy as he has solitary lesion. neuro surgery signed off
Patient at this time declining significantly and prognosis is guarded. Spoke with patient and spouse and change CODE STATUS to DNR. Hospice consulted
Anxiety
- Continue HS trazodone and PRN lorazepam as needed for acute anxiety.
Thrombocytopenia
- No evidence of active bleeding.
- Follow for changes in cell counts, etc.
Hypothyroidism
- Continue current T4 supplementation.
DVT Prophylaxis: SCDs
Code Status: DNR
Discussed with spouse again 02/15 regarding hospice. Patient is currently very weak and lethargic and is unable to undergo any treatment. Oncology will speak to the family as well. Prognosis guarded
02/16 Patient at this time declining significantly and prognosis is guarded. Spoke with patient and spouse and change CODE STATUS to DNR. Hospice consulted
02/17 Spouse main problem is if she can take care of the patient at home. Patient is progressively declining. Asked case resolution specialist to see if can have any assistance. Discussed with linoleum printer that they will be visiting twice weekly
I spent a total of 51 minutes with the patient or on the floor. More than 50% of this time involved counseling and coordination of care.
Anticipated Discharge: Within 24 hours
Subjective/Interval History
-
Date of Service: February 18, 2024
denies nausea
Objective Data
-
Labs:
Laboratory Results
02/18/24
05:19
WBC 7.1
Hgb 12.8 L
Hct 37.6 L
Plt Count 42 L D
Sodium 142
Potassium 4.2
Chloride 112 H
Carbon Dioxide 26
BUN 31 H
Creatinine 0.6 L
Glucose 107 H
Calcium 8.8
Vital Signs:
Vital Signs
Temp Pulse Resp BP Pulse Ox
97.4 F 113 16 121/86 97
02/18/24 07:05 02/18/24 08:51 02/18/24 07:05 02/18/24 07:05 02/18/24 08:00
I&O
02/17/24 02/18/24 02/19/24
06:59 06:59 06:59
Intake Total 400 / 400 240 / 240
Output Total 700 / 700
Balance 400 / 400 -460 / -460
--- NOTE | 2024-02-18 10:36 | HOSPNOTE ---
Hospice continues to follow. Attending spoke to spouse. She is not opposed to hospice but wants to make sure she can care for patient at home and also have increase help at home. CM is working to see if they qualify for any additional assistance.
Spouse is also looking into [facility] as they have used [facility] and palliative care in the past. Reviewed with Attending that we will continue to follow and remain available.
[2024-02-18 11:00] VITALS: BP 126/82
--- NOTE | 2024-02-18 13:47 | PTCARENOTE ---
Pt anxious with confused conversations. ringing the graff multiple times saying 'I don't know what he needs'. ' He is rattling on about something.' When asked if he needs something it turns out to nothing. Emotional support provided to pt and
his . is concerned that she will not be able to care for her by herself and is hoping to get some extra help.
[2024-02-18 15:05] VITALS: BP 133/80
[2024-02-18] MEDS: LIPITOR 40 MG PO (17:03)
[2024-02-18 19:21] VITALS: BP 119/69
[2024-02-18] MEDS: LOPRESSOR PO (20:00)
[2024-02-18] MEDS: DESYREL PO (20:36)
[2024-02-18] MEDS: PROTONIX 40 MG PO (20:36)
[2024-02-18] MEDS: DECADRON PO (20:36)
[2024-02-18] MEDS: FLUSH (NSS) 1 FLUSH IV (20:40)
[2024-02-18] MEDS: ATIVAN 0.25 MG PO (20:57)
[2024-02-18] MEDS: DESYREL 50 MG PO (22:29)
[2024-02-18 22:34] VITALS: BP 132/68
[2024-02-19 03:47] VITALS: BP 108/70
[2024-02-19 05:28] LABS: Blood Urea Nitrogen 30 mg/dl (9-20); Calcium 8.7 mg/dl (8.4-10.2); Carbon Dioxide 28 mmol/L (22-30); Chloride 113 mmol/L (98-107); Estimated Creatinine Clearance 93 ml/min; Glucose 121 mg/dl (70-99); Sodium 141 mmol/L (135-145); eGFR > 60.00
[2024-02-19 05:39] LABS: Hematocrit 34.9 % (39.0-52.0); Hemoglobin 12.1 g/dL (13.0-18.0); Mean Corp Hgb Conc. 34.7 g/dL (33.0-37.0); Mean Corpuscular Hgb 34.4 pg (27.0-31.0); Mean Corpuscular Volume 99.1 fL (80.0-94.0); Platelet Count 28 10^3/uL (130-400); Red Blood Cell Count 3.52 10^6/uL (4.70-6.10); Red Cell Dist. Width 17.7 % (11.5-14.5); White Blood Cell Count 4.9 10^3/uL (4.8-10.8)
[2024-02-19] MEDS: SYNTHROID 50 MCG PO (06:24)
[2024-02-19 07:10] VITALS: BP 125/70
[2024-02-19 07:28] LABS: % Immature Granulocytes 0.4 % (0-0.5); % Lymphocytes 2.9 % (20.5-51.1); % Monocytes 5.3 % (1.7-9.3); % Neutrophils 91.4 % (42.2-75.2); Absolute Lymphocytes 0.1 10^3/uL (1.2-3.4); Absolute Monocytes 0.3 10^3/uL (0.1-0.6); Absolute Neutrophils 4.5 10^3/uL (1.4-6.5); Nucleated Red Blood Cells % 0 % (-)
[2024-02-19] MEDS: KEPPRA 500 MG PO (08:13)
[2024-02-19] MEDS: COLACE 100 MG PO (08:13)
[2024-02-19] MEDS: MS CONTIN (EXTENDED RELEASE) 15 MG PO (08:14)
[2024-02-19] MEDS: LOPRESSOR PO (08:14)
[2024-02-19] MEDS: DECADRON 4 MG PO (08:14)
[2024-02-19] MEDS: MIRALAX PO (08:15)
[2024-02-19 12:42] VITALS: BP 138/73
--- NOTE | 2024-02-19 12:44 | W.PN.HOSP.TC ---
Today's Communication/Plan
-
GOC discussion
continue current care plan
possible transition inpt hospice if spouse agreeable
Assessment / Plan
Assessment / Plan
A/P: Patient is a 69y M with PMH significant for paroxysmal atrial fibrillation (not on oral anticoagulation due to low platelet count), metastatic lung cancer who presents to ED complaining of recent cough, fatigue, confusion, found to be covid
+.
CXR
IMPRESSION:
Mild left perihilar pneumonia and small left pleural effusion.
HEAD CT
IMPRESSION:
No acute intracranial hemorrhage.
Edema associated with known metastatic lesion along the posterior medial margin of the right temporal lobe has improved.
No other significant interval change.
MRI brain
1. 2.7 cm MALIGNANT INTRA-AXIAL MASS in the posteromedial right temporal lobe and posterior right thalamus surrounded by moderate vasogenic edema consistent with a SOLITARY BRAIN METASTASIS.
2. No MRI evidence for new intracranial metastatic disease.
3. Moderate diffuse cerebral and cerebellar volume loss.
4. Mild white matter leukoaraiosis in the frontal and parietal lobes.

1. COVID-19 viral infection
Superimposed bacterial pneumonia
Acute hypoxic respiratory insufficiency
-Initial chest x-ray showing left-sided opacity and small effusion
-Patient finished course of Rocephin and doxycycline for pneumonia
-Able to be weaned off of oxygen
2. Stage IV non-small cell lung cancer
Brain metastasis
-Patient currently not on active therapy
-MRI brain showing mass in right temporal lobe and right thalamus with vasogenic edema
-Maintain on steroids and antiseizure medication
-Poor prognosis and oncology have been in agreement with hospice plan
3. Dysphagia
-Patient at high risk of aspiration with audible gurgling while communicating
-At risk of aspiration/mucous plugging and respiratory arrest
-Patient got VAC on 02/11, currently on IDDSI 4/honey thick liquid
4. Acute TME
-Secondary to COVID/brain metastasis/pain medication
-Continue supportive measures
5. Thrombocytopenia
-Worsening over last few days
-Secondary to infection/malignancy related
-Monitor for any bleeding diathesis
6. Paroxysmal atrial fibrillation/Flutter
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
-Cardiology evaluated and help appreciated
-Not a candidate for blood thinners with brain metastatic disease and thrombocytopenia and low [id number]
-Currently rate controlled on oral metoprolol
-Not a candidate for pacemaker
7. Anxiety
- Continue HS trazodone and PRN lorazepam as needed for acute anxiety.
8. Hypothyroidism
- Continue current T4 supplementation.
DVT Prophylaxis: SCDs
Code Status: DNR
Total time spent : 53 mins
Repeat discussion regarding goals of care with spouse. I have discussed patient's poor prognosis and need of hospice care as patient have advanced malignancy and related complication at this point. Spouse hopeful for patient to be taken home for
home hospice care which is not ideal with his current situation. Patient appropriate for inpatient hospice care and outpatient and hospice staff will evaluate as well. Spouse was requesting [facility] although they do not have an inpatient
hospice services and will not be able to provide any services here in [place].
Anticipated Discharge: 24 - 48 hours
Subjective/Interval History
-
Date of Service: February 19, 2024
resting comfortably in bed
have gurgling sound while talking
remains confused with mumbling word sometimes
Objective Data
-
Labs:
Laboratory Results
02/19/24
04:49
WBC 4.9
Hgb 12.1 L
Hct 34.9 L
Plt Count 28 L* D
Sodium 141
Potassium 4.0
Chloride 113 H
Carbon Dioxide 28
BUN 30 H
Creatinine 0.5 L
Glucose 121 H
Calcium 8.7
Vital Signs:
Vital Signs
Temp Pulse Resp BP Pulse Ox
97.6 F 48 16 138/73 93
02/19/24 12:42 02/19/24 12:42 02/19/24 12:42 02/19/24 12:42 02/19/24 12:42
I&O
02/18/24 02/19/24 02/20/24
06:59 06:59 06:59
Intake Total 240 / 240 120 / 120
Output Total 700 / 700 525 / 525
Balance -460 / -460 -405 / -405
Review of Systems
-
Unable to obtain full review of systems at this time due to: Acuity
Physical Exam
-
General: Comfortable
HEENT: Oxygen and Other
Respiratory: Rhonchi (audible secretion on exam)
Cardiac: Regular Rhythm and S1/S2; Negative Murmur or Rub
GI: Soft, Nontender and Nondistended
Musculoskeletal: No Edema
Neuro: Awake and Alert; Negative Oriented
Psych: Calm
--- NOTE | 2024-02-19 13:38 | HOSPNOTE ---
Spoke with spouse at length about inpatient hospice. The spouse is having a difficult time making this decision. The patient is declining daily extremely agitated decreased urine output and poo po intake. Hospice is needed. The plan is for the
hospice nurse to come here meet with spouse and sign onto hospice services. Admissions was called.
--- NOTE | 2024-02-19 15:17 | CM ---
Attending requested hospice consult. Referral placed.
--- NOTE | 2024-02-19 16:28 | W.DCSUMMARY ---
Discharge Summary
Discharge Data
Date of Admission: 02/09/24
Date of Discharge: 02/19/24
-
Pending Results: No
Hospital Course
Discharging Physician : Dr Miki Henderson
Disposition : Inpatient hospice
Primary care physician : Unknown
Principal Discharge diagnosis :
COVID-19 viral infection
Superimposed bacterial pneumonia
Urinary retention
Acute toxic metabolic encephalopathy
Thrombocytopenia
Dysphagia
Chronic Discharge diagnosis :
Stage IV non-small cell lung cancer
Anxiety/depression
Paroxysmal atrial fibrillation
Hypothyroidism
Hospital Course :
Patient is a 69-year-old male with above-mentioned past medical history was brought in to ER for any new onset of cough/confusion and weakness. Patient had visited ER week before and was diagnosed to have metastatic brain lesion for which patient
was started on steroids and antiepileptics. On this ER visit patient chest x-ray was showing new left-sided opacity with small effusion. Patient was checked for COVID and was tested positive. Patient was requiring oxygen through nasal cannula.
Patient was already on steroids at home and was maintained on it. Clinically there was concern of having superimposed bacterial pneumonia due to patient ongoing dysphagia/aspiration. Patient was started on broad-spectrum antibiotic. Oncology was
involved in care and was following patient along. Patient also started developing new thrombocytopenia. Patient had A-fib/flutter as well was not a candidate for anticoagulation/blood thinners due to thrombocytopenia. Patient overall prognosis was
felt to be poor and despite treatment of underlying pneumonia/COVID patient continued to decline. Goal of care discussion was held and patient was transition to inpatient hospice after family agreement.
Important imaging findings :
None
Procedure findings :
None
Discharge Plan
-
Patient Disposition: Hospice - Inpatient
Discharge Diagnosis/Procedures: Metastatic NSCLC
Condition: Critical
Diet: Other diet
Additional Diets: IDDSI 4
Driving Restrictions: No driving
Referrals:
UNKNOWN - PT DOES,NOT KNOW [Family Provider] -
Prescriptions:
Continued
atorvastatin 40 mg tablet
40 mg PO QPM
levetiracetam 500 mg tablet
500 mg PO BID
trazodone 100 mg tablet
50 mg PO HS
levothyroxine 50 mcg tablet
50 mcg PO DAILY
polyethylene glycol 3350 17 GRAMS powder in packet
8.5 grams PO DAILY
morphine 15 MG tablet extended release
15 mg PO Q12H
Patient Comments:
02/09/2024: last filled 01/22/24, 60 tabs for 30 days from [id number]
dexamethasone 4 mg tablet
4 mg PO Q8H Qty: 45 0RF
pantoprazole 40 mg Tablet,Delayed Release (Dr/Ec)
40 mg PO HS
lorazepam [Ativan] 0.5 mg tablet
0.25 mg PO BIDPRN PRN (Reason: anxiety)
Patient Comments:
02/09/2024: last filled 12/28/23, 10 tabs for 10 days from [id number]
Discharge Orders:
Discharge Patient (As Directed); Ordered 02/19/24
Ordered By: Miki Henderson
Discharge Date and Time
Discharge Date/Time: 02/19/24 16:34
Print Language: THAI
[2024-02-19] MEDS: DECADRON PO (16:34)
[2024-02-19] MEDS: LIPITOR PO (16:35)
--- NOTE | 2024-02-19 16:38 | CM ---
Patient has been discharged and transitioned to inpatient hospice.
== END 2024-02-19 16:34 | disposition hospice, inpatient (51) | DRG 177 ==
LOC: 2 NORTH 22:07
PROVIDERS: Internal Medicine; Nurse Practitioner; Nurse Practitioner Family; Student in an Organized Health Care Education/Training Program; ADMITTING PHYSICIAN Hospitalist; ATTENDING PHYSICIAN Hospitalist; CONSULT PHYSICIAN Internal Medicine Cardiovascular Disease; CONSULT PHYSICIAN Internal Medicine Hematology & Oncology; EMERGENCY PHYSICIAN Emergency Medicine
DX: U07.1 COVID-19 (principal); G92.8 Other toxic encephalopathy; G93.6 Cerebral edema; J15.9 Unspecified bacterial pneumonia; C79.31 Secondary malignant neoplasm of brain; C79.51 Secondary malignant neoplasm of bone; R64 Cachexia; F03.94 Unspecified dementia, unspecified severity, with anxiety; I48.92 Unspecified atrial flutter; J90 Pleural effusion, not elsewhere classified; Z51.5 Encounter for palliative care; I48.0 Paroxysmal atrial fibrillation; R62.7 Adult failure to thrive; D69.6 Thrombocytopenia, unspecified; R06.89 Other abnormalities of breathing; R09.02 Hypoxemia; D64.9 Anemia, unspecified; E03.9 Hypothyroidism, unspecified; E78.00 Pure hypercholesterolemia, unspecified; F32.A Depression, unspecified; R13.10 Dysphagia, unspecified; I10 Essential (primary) hypertension; R33.9 Retention of urine, unspecified; K59.00 Constipation, unspecified; Z66 Do not resuscitate; Z86.16 Personal history of COVID-19; Z87.01 Personal history of pneumonia (recurrent); Z87.442 Personal history of urinary calculi; Z88.1 Allergy status to other antibiotic agents; Z87.891 Personal history of nicotine dependence; Z79.52 Long term (current) use of systemic steroids; Z92.21 Personal history of antineoplastic chemotherapy; Z92.3 Personal history of irradiation; Z79.890 Hormone replacement therapy; Z85.118 Personal history of other malignant neoplasm of bronchus and lung
CPT/HCPCS: 70450; 70553; 71046; 74230; 80048; 80053; 81003; 83735; 84443; 85025; 85027; 86803; 87070; 87205; 87811; 92610; 92611; 93005; 96361; 96365; 97110; 97116; 97162; 97167; 97530; 97535; 99285; A9575